=== PATIENT | male | born 1985 | race Caucasian/White ===

== ENCOUNTER 2017-06-05 17:12 | Emergency (ER) | payer OTHER, SELFPAY ==
[2017-06-05 17:13] VITALS: BP 135/85; PULSE 74; RESP 16; TEMP 36.4; O2SAT 100; BMI 25.7
--- NOTE | 2017-06-05 17:33 | ED.VISSUMM ---
- ER Visit Summary Date of Service: 06/05/17 Chief Complaint: Diarrhea for 10 days and now abdominal pain History of Present Illness: The patient is a 32 M for surgical history. States the last 10 days he has had multiple episodes of diarrhea. He is also had intermittent fever. Today started having abdominal pain cramping. Denies dysuria. Denies being on any recent antibiotics. He has not recently been hospitalized. He is never anything like this before. No one else at home with similar symptoms. Physical Examination: Male. Vital signs are stable and afebrile. Does not look septic toxic no acute distress. Pulse ox 9% room air no signs of hypoxia. H EENT exam unremarkable moist mucous membranes. Neck nontender no lymphadenopathy. Lungs clear to auscultation bilaterally. Heart regular rate and rhythm no murmur. Abdomen is soft and nontender. Normal bowel sounds. No peritoneal signs. Both right upper right lower quadrants are unremarkable. No hernias or masses. He is moving all 4 extremities. Neurovascular intact. Back exam normal. Skin exam normal. Neurologic exam is normal. Test Results: CBC, liver and lipase were all normal. BMP normal except for potassium of 3.3 consistent with his diarrhea. Emergency Department Course and Treatment: Patient with diarrhea and abdominal pain. His abdominal exam is benign. He will be hydrated with IV fluids. Given IV Zofran for nausea. Will check some screening labs. Treatment Plan: Repeat exam at 1900 patient is doing well. He feels much better with the IV fluids. He is comfortable being discharged home. He has not had any bowel movements in the ER so we could not send a stool sample. He knows to follow-up if he continues to have diarrhea because he will need to have a stool sample done at that time.. Fluids and rest at home. Imodium for diarrhea. Disposition: Discharge Impression: Diarrhea secondary to suspected viral syndrome. Mild hypokalemia This note was generated with [employer] dictation software. It may contain incorrect words, spelling, and punctuation that were not noted in review of the chart prior to signing ED Disposition - Plan for ED Patient: Chief Complaint: Abd Pain Referrals: Care Physician,No Primary [Primary Care Provider] -
[2017-06-05] MEDS: 0.9% Normal Saline 1,000 ML 1000 ML IV (17:35)
[2017-06-05] MEDS: Ondansetron 4 MG/2 ML Vial IV (17:35)
[2017-06-05 17:47] LABS: Absolute Lymphocyte Count 2.38 X10^3/ul (0.83-4.51); Absolute Neutrophil Count 2.4 X10^3/uL (2.0-7.7); Basophil# 0.02 X10^3/uL; Basophil% 0.4 % (0-1); Eosinophil# 0.12 X10^3/uL; Eosinophils% 2.1 % (0-5); Hematocrit 39.5 % (40-54); Hemoglobin 13.9 g/dl (13.0-16.5); Lymphocyte # 2.38 X10^3/ul (4.0); Mean Corp Hgb Conc 35.2 g/gl (32-36); Mean Corpuscular Hgb 30.8 pg (27.0-32.0); Mean Corpuscular Volume 87.4 fL (80-94); Mean Platelet Vol. 9.8 fl (6.2-12.0); Monocyte# 0.78 X10^3/uL; Monocyte% 13.8 % (0-10); Neutrophil # 2.36 X10^3/uL (2.7-7.7); Neutrophil % 41.5 % (47-70); Platelet Count 203 K/mm3 (150-450); RBC Distribution Width CV 12.5 % (11.6-14.6); RBC Distribution Width SD 40.3 fl (35.1-43.9); Red Blood Count 4.52 M/mm3 (4.6-6.2); White Blood Count 5.7 K/mm3 (4.4-11.0)
[2017-06-05 17:48] LABS: POSITIVE COUNT NO; POSITIVE DIFFERENTIAL NO; POSITIVE MORPHOLOGY NO
[2017-06-05 18:17] LABS: AST(SGOT) 33 U/L (15-37); Alanine Aminotransfer ALT/SGPT 47 U/L (12-78); Alkaline Phosphatase 63 U/L (45-117); Anion Gap 8 (5-15); BUN 9 mg/dL (7-18); BUN/Creat Ratio 11.6 RATIO (10-20); Bilirubin, Direct 0.18 mg/dL (0.00-0.30); Calcium,Total 8.6 mg/dL (8.5-10.1); Chloride 106 mmol/L (98-107); Creatinine, Serum 0.78 mg/dL (0.70-1.30); EST Glomerular Filtration Rate 122 mL/min (>60); Est Glom Filt Rate - Afr Amer 147 mL/min (>60); Estimated Creatinine Clearance 124.76 ml/min; Globulin 3.4 g/dL (2.2-4.2); Glucose 88 mg/dL (70-110); Lipase 73 U/L (73-393); Potassium 3.3 mmol/L (3.5-5.1); Protein, Total 7.4 g/dL (6.4-8.2); Sodium Level 142 mmol/L (136-145)
--- NOTE | 2017-06-05 19:04 | ED.DEP ---
ED Disposition - Plan for ED Patient: Disposition: Home or Assisted Living Chief Complaint: Abd Pain Instructions: ED Diarrhea Viral Referrals: Miguel Ovalle MD [STAFF PHYSICIAN] - 3-5 Days if not improving Additional Instructions: Plenty of fluids and rest. Vitamins and green leafy vegetables and fruits to replace your potassium. Imodium as needed for diarrhea. Follow-up if you are not improving and the diarrhea is not resolving then you will need a stool sample tested.
[2017-06-05 19:23] VITALS: PULSE 85; RESP 14; O2SAT 99
== END 2017-06-05 19:24 | disposition home or self-care (01) ==
PROVIDERS: Emergency Provider Emergency Medicine
DX: R19.7 Diarrhea, unspecified (principal); B34.9 Viral infection, unspecified; E87.6 Hypokalemia; R10.9 Unspecified abdominal pain; Z72.0 Tobacco use
CPT/HCPCS: 80048; 80076; 83690; 85025; 96374; 99282; J7030; J2405

== ENCOUNTER 2020-11-22 15:35 | Emergency (ER) | payer OTHER, SELFPAY ==
[2020-11-22 15:35] VITALS: BP 152/78; PULSE 78; RESP 18; TEMP 36.1; O2SAT 98; BMI 27.8
--- NOTE | 2020-11-22 17:14 | EDS_ITS ---
HPI History of Present Illness Chief Complaint: Dental Narrative Narrative: Patient presenting secondary to a dental injury. Patient was at work, he states that a chain flipped off of a reyes and hit him in the mouth. He did not get knocked out, it did cause him to fracture some teeth. Patient's not on any sort of anticoagulants. Denies any visual changes numbness weakness nausea or vomiting or confusion. Patient reports a moderate amount of pain in his teeth. PFSH PFSH Home Medications hydrocodone-acetaminophen 1 tab PO Q6H PRN PRN 3 Days #12 tablet 11/22/20 [Rx Last Taken Unknown] Allergy/AdvReac Type Severity Reaction Status Date / Time No Known Allergies Allergy Verified 11/22/20 15:39 Social History Smoking Status: Former smoker ROS ROS ED Constitutional Constitutional ED: Denies chills or fever(s) ENT ENT ED: Reports other Details: Dental fractures Cardiovascular Cardiovascular: Denies chest pain Respiratory/Chest Respiratory/Chest: Denies cough or dyspnea Gastrointestinal Gastrointestinal: Denies abdominal pain, diarrhea, nausea or vomiting Genitourinary Genitourinary ED: Denies dysuria or hematuria Musculoskeletal Musculoskeletal: Denies back pain Integumentary Denies rash Neurologic Neurologic: Denies paresthesias or weakness Psychiatric Psychiatric: Denies depression Endocrine Endocrinology: Denies fatigue Allergic/Immunologic Allergic/Immunologic ED: Denies urticaria EXAM Physical Exam Const Vital Signs: 11/22/20 15:35 Temperature 97 F L Temperature Source Temporal Pulse Rate 78 Respiratory Rate 18 Blood Pressure 152/78 H Blood Pressure Mean 102 Pulse Ox 98 Oxygen Delivery Method Room Air Positive well nourished and well developed General Appearance ED: well developed and NAD HEENT Reports moist mucous membranes HEENT Narrative: Examination of the patient's mouth shows no evidence of malocclusion, no evidence of midface instability. There are Ruiz 2 dental fractures of the patient's central upper incisors. Patient has a slight scratch on his right lateral incisor. trauma; Negative for tenderness Eyes EOMs intact bilaterally Neck no lymphadenopathy, supple and no JVD Chest Wall inspection of chest normal Resp normal respiratory effort and clear to auscultation bilaterally Cardio regular rate, regular rhythm, no murmurs and peripheral pulses 2+ throughout GI normal to inspection, nondistended, normoactive bowel sounds, non-tender and no masses Palpation: soft Back/Spine normal to inspection Extremity normal to inspection General Extremety ED: Negative for tenderness Neuro oriented x3 and no sensory deficits noted Sensorium / Orientation: alert Motor Exam: strength 5/5 throughout Psych mental status grossly normal Skin no rashes or lesions noted MDM MDM MDM Narrative Medical decision making narrative: Patient presented with dental fractures. I do not feel that imaging is indicated. Secondary survey showed only injuries to the patient's mouth. I placed temporary [place] filling over the patient's Ruiz 2 dental fractures on his incisors. Patient was given a [place] in the emergency department. Patient already has a dentist with which she is supposed to follow- up. Patient will be sent home with a course of [place] for treatment of pain. Patient was discharged in improved condition. Discharge Plan Triage Chief Complaint: Dental ED Provider: Simone Mejia Dx/Rx/DC Orders Clinical Impression: Fracture of tooth Instructions: ED Dental Trauma Prescriptions: New hydrocodone-acetaminophen 5-325 mg tablet 1 tab PO Q6H PRN PRN (Reason: Pain) 3 Days Qty: 12 RF: 0 Primary Care Provider: Care Physician,No Primary Referrals: Care Physician,No Primary [Primary Care Provider] - Activity Restrictions/Additional Instructions: You will need to follow-up with a dentist for definitive management of your tooth fractures. Disposition Disposition: Home, self care
[2020-11-22] MEDS: HYDROcodone Bitartrate/Apap 5/325 Tablet PO (17:35)
== END 2020-11-22 17:38 | disposition home or self-care (01) ==
PROVIDERS: Emergency Provider Emergency Medicine
DX: S02.5XXA Fracture of tooth (traumatic), initial encounter for closed fracture (principal); W22.8XXA Striking against or struck by other objects, initial encounter; Y93.9 Activity, unspecified; Y92.9 Unspecified place or not applicable; Y99.0 Civilian activity done for income or pay; Z87.891 Personal history of nicotine dependence
CPT/HCPCS: 99283

== ENCOUNTER 2021-04-18 21:26 | Emergency (ER) | payer OTHER, SELFPAY ==
[2021-04-18 21:26] VITALS: BP 160/90; PULSE 90; RESP 16; TEMP 36.4; O2SAT 98; BMI 28.1
[2021-04-18 21:29] VITALS: BP 160/90; PULSE 90; RESP 16; TEMP 36.4; O2SAT 98
--- NOTE | 2021-04-18 23:03 | EDS_ITS ---
HPI History of Present Illness Chief Complaint: Rash Informant: patient Narrative Narrative: Patient is a 36-year-old male presenting for evaluation of rash and itching. Patient states he went hunting on Sunday. He noticed that day his skin felt itchy all over like he had dry skin. He took Benadryl which relieved the symptoms. The following day he noticed a tick on his left arm. He pulled it off. He does not think it was on for longer than 24 hours. He notes his left hand was a little swollen today when he woke up his hands, feet and 1 side of his face are all swollen. He has had blotchy, itching rash he describes as hives. Has been taking Benadryl for relief of his symptoms. His boss was concerned that he could have Lyme disease so he recommend he come to the emergency room to be evaluated further. Patient does note that last week he was sick and took 3 days worth of clarithromycin that he had at his house. His last dose was on Sunday. He is never reacted to this before. He denies any other complaints at this time. [place] any difficulty swallowing or breathing. Denies any new soaps, medications or foods. PFSH PFSH Home Medications hydrocodone-acetaminophen 1 tab PO Q6H PRN PRN 3 Days #12 tablet 11/22/20 [Rx Last Taken Unknown] prednisone 40 mg PO DAILY #8 tab 04/18/21 [Rx Last Taken Unknown] Allergy/AdvReac Type Severity Reaction Status Date / Time No Known Allergies Allergy Verified 04/18/21 21:29 Social History Smoking Status: Former smoker ROS ROS ED Constitutional Constitutional ED: Denies chills or fever(s) Eyes Eyes: Denies change in vision ENT ENT ED: Denies ear pain or sore throat Cardiovascular Cardiovascular: Denies chest pain or palpitations Respiratory/Chest Respiratory/Chest: Denies cough or dyspnea Gastrointestinal Gastrointestinal: Denies abdominal pain, nausea or vomiting Musculoskeletal Musculoskeletal: Reports other Details: intermittent hand swelling ; Denies arthralgias or myalgias Integumentary Reports rash; Denies abscess or Abrasions Neurologic Neurologic: Denies headache(s), paresthesias or weakness Psychiatric Psychiatric: Denies depression EXAM Physical Exam Const Vital Signs: 04/18/21 21:26 04/18/21 21:29 Temperature 97.6 F L 97.6 F L Temperature Source Temporal Temporal Pulse Rate 90 90 Respiratory Rate 16 16 Blood Pressure 160/90 H 160/90 H Blood Pressure Mean 113 113 Pulse Ox 98 98 Oxygen Delivery Method Room Air Room Air Positive well nourished and well developed General Appearance ED: well developed HEENT Reports moist mucous membranes HEENT Narrative: Normal oropharynx. No uvular edema. No swelling of the oropharynx appreciated. Negative for trauma Eyes PERRL and EOMs intact bilaterally Neck no lymphadenopathy and supple Neck Narrative: Normal range of motion. No stridor. Chest Wall inspection of chest normal Resp normal respiratory effort and clear to auscultation bilaterally Auscultation: Negative for wheezes Cardio regular rate, regular rhythm and no murmurs GI normal to inspection, nondistended, normoactive bowel sounds Back/Spine no CVA tenderness Extremity normal to inspection General Extremety ED: Negative for edema or tenderness General Extremity: Negative for edema Neuro oriented x3 and CN's II-XII intact bilaterally Sensorium / Orientation: alert Psych mental status grossly normal Skin no rashes or lesions noted Skin Narrative: No urticaria appreciated currently. Patient does have some excoriations on his back from where he was itching. Small scab over left upper arm where he states he removed the tick. MDM MDM MDM Narrative Medical decision making narrative: Patient is evaluated for itching and rash for past 2 days. It is intermittent. Currently he does not have any of the symptoms. It sound like he is having hives. Question if it could be from his recent intake of clarithromycin. He is instructed to stop taking it. I do not think he needs antibiotics. I do not think this is Lyme disease or [place] spotted fever. Concerning the tick was attached for less than 24 hours and we are not endemic in this area I do not think he requires prophylactic antibiotics. Patient will be started on steroids for his symptoms. He is given first dose in the emergency room. He does not have any findings consistent with anaphylaxis. Patient is counseled on signs and symptoms requiring return to the emergency room. Patient verbalizes agreement and understand this plan. Patient discharged home in stable and improved condition. Discharge Plan Triage Chief Complaint: Rash ED Provider: Catherine Salcedo Dx/Rx/DC Orders Clinical Impression: Urticaria Instructions: ED Hives (Adult) Prescriptions: New prednisone 20 mg tablet 40 mg PO DAILY Qty: 8 RF: 0 No Action hydrocodone-acetaminophen 5-325 mg tablet 1 tab PO Q6H PRN PRN (Reason: Pain) 3 Days Qty: 12 RF: 0 Primary Care Provider: Care Physician,No Primary Referrals: Adrián Griffin MD [STAFF PHYSICIAN] - Care Physician,No Primary [Primary Care Provider] - Activity Restrictions/Additional Instructions: Continue taking Benadryl as needed for itching and rash. I suspect you are having some type of allergic reaction. It could be from the clarithromycin antibiotic you were taking or could be from something else. Disposition Disposition: Home, Self Care
[2021-04-18] MEDS: predniSONE 20 MG Tablet 60 MG PO (23:07)
== END 2021-04-18 23:12 | disposition home or self-care (01) ==
PROVIDERS: Emergency Provider Emergency Medicine
DX: L50.9 Urticaria, unspecified (principal); Z87.891 Personal history of nicotine dependence
CPT/HCPCS: 99283

== ENCOUNTER 2022-09-05 12:14 | Emergency (ER) | payer OTHER, SELFPAY ==
[2022-09-05 12:14] VITALS: BP 145/87; PULSE 107; RESP 18; TEMP 36.1; O2SAT 100; BMI 26.6
[2022-09-05 13:50] LABS: Absolute Lymphocyte Count 1.85 X10^3/uL (0.83-4.51); Basophil# 0.06 X10^3/uL; Basophil% 0.8 % (0-1); Eosinophil# 0.22 X10^3/uL; Eosinophils% 2.8 % (0-5); Hematocrit 41.9 % (40-54); Hemoglobin 14.1 g/dL (13.0-16.5); Lymphocyte # 1.85 X10^3/ul (0.83-4.51); Lymphocyte % 23.3 % (19-41); Mean Corp Hgb Conc 33.7 g/dL (32-36); Mean Corpuscular Hgb 30.1 pg (27.0-32.0); Mean Corpuscular Volume 89.5 fL (80-94); Mean Platelet Vol. 9.1 fl (6.2-12.0); Monocyte% 10.1 % (0-10); NRBC Flagged by Analyzer 0 % (0-5); Neutrophil # 5.01 X10^3/uL (2.7-7.7); Neutrophil % 62.9 % (47-70); Platelet Count 292 K/mm3 (150-450); RBC Distribution Width CV 12.4 % (11.6-14.6); RBC Distribution Width SD 40.2 fl (35.1-43.9); Red Blood Count 4.68 M/mm3 (4.6-6.2)
[2022-09-05 14:06] LABS: Anion Gap 4 (5-15); BUN 9 mg/dL (7-18); BUN/Creat Ratio 9.9 RATIO (10-20); Calcium,Total 9.6 mg/dL (8.5-10.1); Chloride 106 mmol/L (98-107); Creatinine, Serum 0.91 mg/dL (0.70-1.30); EST Glomerular Filtration Rate 98 mL/min (>60); Est Glom Filt Rate - Afr Amer 119 mL/min (>60); Estimated Creatinine Clearance 101.89 ml/min; Glucose 92 mg/dL (74-106); Potassium 4.2 mmol/L (3.5-5.1); Sodium Level 137 mmol/L (136-145)
--- NOTE | 2022-09-05 14:52 | CT_ITS ---
EXAM: CT ABDOMEN AND PELVIS WITH INTRAVENOUS CONTRAST CLINICAL INDICATION: abd pain -- IV PO Contrast TECHNIQUE: Helically acquired images were obtained of the abdomen and pelvis with intravenous contrast. This CT exam was performed using one or more of the following dose reduction techniques: automated exposure control, adjustment of the mA and/or kV according to patient size, and/or use of iterative reconstruction technique. This report was created using [employer] report generation technology. CONTRAST: Oral and amp; IV Gastrografin and amp; 100mL Isovue-370 COMPARISON: None. FINDINGS: LOWER THORAX: Unremarkable. Lung bases are clear. No cardiomegaly. No significant pericardial effusion. ABDOMEN: LIVER: Unremarkable. Homogeneous. No focal mass. GALLBLADDER AND BILE DUCTS: Unremarkable. No calcified gallstones. No gallbladder distention or wall edema. No intra- or extrahepatic biliary ductal dilation. PANCREAS: Unremarkable. No focal cystic or solid mass. SPLEEN: Unremarkable. Normal size without focal cystic or solid mass. ADRENALS: Unremarkable. No nodules. KIDNEYS AND URETERS: Unremarkable. Normal renal size and position. No hydronephrosis. STOMACH AND BOWEL: There is mild thickening of wall of enhancement of mucosa of the sigmoid colon which may be due to to colitis. There are no obvious diverticula present. There is no evidence of perforation or abscess. No stomach or bowel distention. PELVIS: APPENDIX: No evidence of acute appendicitis. BLADDER: Unremarkable. REPRODUCTIVE: Unremarkable as visualized. No mass. ABDOMEN and PELVIS: INTRAPERITONEAL SPACE: Unremarkable. No ascites or other fluid collection. No free air. BONES/JOINTS: Unremarkable. No suspicious lytic or blastic abnormality. SOFT TISSUES: Unremarkable. No discrete abdominal or pelvic wall hernia. VASCULATURE: Unremarkable. Abdominal aorta is non-dilated. LYMPH NODES: Unremarkable. No enlarged lymph nodes. CT/Abdomen/Pelvis WITH Contrast IMPRESSION: Mild thickening of the wall with enhancement of the mucosa of the sigmoid colon which may represent focal colitis. There is no abscess or perforation identified. There are no diverticula seen. Electronically Signed: Maximiliano Matamoros MD at 17:19 EDT ,
--- NOTE | 2022-09-05 14:53 | EX.ED.DYSGE1 ---
HPI History of Present Illness Chief Complaint: Abd Pain Informant: patient Onset/Context/Timing Onset: Days Context: Gradual Onset Narrative Narrative: Patient presents secondary to increased abdominal pain. He reports increased abdominal pain for the past 2 days and points to the left upper quadrant. He has had problems with recurrent abdominal pain and states he has been shooting blood for the past 3 years. He has seen multiple doctors and had colonoscopies. There was a question that he may have colitis. Patient had previously been on prednisone and mesalamine but states he stopped taking it because it did not work. He most recently finished a course of Flagyl. He states it made no change in his stool or abdominal pain, but did give him leg pain. He is scheduled to see Dr. Gutierres but cannot get in until November. [facility] Medical History Colitis Duodenitis Ulcerative (chronic) proctitis with rectal bleeding Home Medications hydrocodone-acetaminophen 5-325mg 5mg-325mg 1 tab PO Q6H PRN PRN Pain 3 days #12 TABLETS 11/22/20 [Rx Last Taken Unknown] prednisone 20 mg tablet 40 mg PO DAILY #8 tabs 04/18/21 [Rx Last Taken Unknown] mesalamine 1,000 mg rectal suppository 1 g [place] QHS 06/26/22 [History Last Taken Unknown] omeprazole 40 mg capsule,delayed release 40 mg PO DAILY 06/26/22 [History Last Taken Unknown] amoxicillin 875 mg-potassium clavulanate 125 mg tablet 1 tab PO BID #20 tabs 09/05/22 [Rx Last Taken Unknown] dicyclomine 20 mg tablet 20 mg PO BID PRN abdominal cramping #20 tabs 09/05/22 [Rx Last Taken Unknown] Allergy/AdvReac Type Severity Reaction Status Date / Time clindamycin Allergy Hives Verified 09/05/22 12:17 Social History Smoking Status: Former smoker ROS ROS ED Constitutional Constitutional ED: Denies chills or fever(s) Eyes Eyes: Denies change in vision or discharge from eye(s) ENT ENT ED: Denies discharge from eye(s), rhinorrhea or sore throat Cardiovascular Cardiovascular: Denies chest pain or palpitations Respiratory/Chest Respiratory/Chest: Denies cough or dyspnea Gastrointestinal Gastrointestinal: Reports abdominal pain, diarrhea and melena; Denies nausea or vomiting Genitourinary Genitourinary ED: Denies difficulty urinating or dysuria Musculoskeletal Musculoskeletal: Reports extremity pain; Denies back pain Integumentary Denies Abrasions or rash Neurologic Neurologic: Denies headache(s) or weakness Psychiatric Psychiatric: Denies anxiety or depression Allergic/Immunologic Allergic/Immunologic ED: Denies lip swelling or urticaria EXAM Physical Exam Const Vital Signs: 09/05/22 12:14 Temperature 97 F L Temperature Source Temporal Pulse Rate 107 H Respiratory Rate 18 Blood Pressure 145/87 H Blood Pressure Mean 106 Pulse Ox 100 Oxygen Delivery Method Room Air Positive well nourished and well developed General Appearance ED: well developed HEENT Reports normocephalic and head/scalp atraumatic Eyes PERRL and EOMs intact bilaterally Neck supple Chest Wall inspection of chest normal and palpation of chest normal Resp normal respiratory effort and clear to auscultation bilaterally Cardio regular rate and regular rhythm GI GI Narrative: Left upper quadrant tenderness to palpation. No guarding or rebound. Hypoactive but present bowel sounds are noted. Palpation: soft Extremity normal to inspection Extremity Narrative: Tenderness palpation along the Achilles tendon bilaterally. No significant leg edema noted at this time. Neuro oriented x3 and no sensory deficits noted Sensorium / Orientation: alert Motor Exam: strength 5/5 throughout Psych mental status grossly normal Skin no rashes or lesions noted MDM MDM MDM Narrative Medical decision making narrative: Patient given morphine and Zofran along with IV fluids. Lab work obtained. Venous ultrasound of the bilateral lower extremities obtained given his pain. CT scan of the abdomen pelvis ordered. Lab Data Attestation: I reviewed the patient's lab results. Labs: Laboratory Results - last 24 hr 09/05/22 09/05/22 09/05/22 13:45 13:45 13:45 WBC 8.0 RBC 4.68 Hgb 14.1 Hct 41.9 MCV 89.5 MCH 30.1 MCHC 33.7 RDW Std Deviation 40.2 RDW Coeff of June 12.4 Plt Count 292 MPV 9.1 Immature Gran % (Auto) 0.100 Neut % (Auto) 62.9 Lymph % (Auto) 23.3 Scurry % (Auto) 10.1 H Eos % (Auto) 2.8 Baso % (Auto) 0.8 Absolute Neuts (auto) 5.0 Absolute Lymphs (auto) 1.85 Nucleated RBC % 0 Sodium 137 Potassium 4.2 Chloride 106 Carbon Dioxide 27.0 Anion Gap 4 L BUN 9 Creatinine 0.91 Estim Creat Clear Calc 101.89 Est GFR (MDRD) Af Amer 119 Est GFR (MDRD) Non-Af 98 BUN/Creatinine Ratio 9.9 L Glucose 92 Calcium 9.6 Total Bilirubin 0.80 Direct Bilirubin 0.19 AST 16 ALT 28 Alkaline Phosphatase 71 Total Protein 7.4 Albumin 3.5 Globulin 3.9 Lipase 46 L Urine Color Urine Clarity Urine pH Ur Specific [place] Urine Protein Urine Glucose (UA) Urine Ketones Urine Occult Blood Urine Nitrite Urine Bilirubin Urine Urobilinogen Ur Leukocyte Esterase Urine RBC Urine WBC Ur Squamous Epith Cells Urine Bacteria Urine Mucus 09/05/22 15:25 WBC RBC Hgb Hct MCV MCH MCHC RDW Std Deviation RDW Coeff of June Plt Count MPV Immature Gran % (Auto) Neut % (Auto) Lymph % (Auto) Scurry % (Auto) Eos % (Auto) Baso % (Auto) Absolute Neuts (auto) Absolute Lymphs (auto) Nucleated RBC % Sodium Potassium Chloride Carbon Dioxide Anion Gap BUN Creatinine Estim Creat Clear Calc Est GFR (MDRD) Af Amer Est GFR (MDRD) Non-Af BUN/Creatinine Ratio Glucose Calcium Total Bilirubin Direct Bilirubin AST ALT Alkaline Phosphatase Total Protein Albumin Globulin Lipase Urine Color Yellow Urine Clarity Sl. Cloudy Urine pH 7.0 Ur Specific [place] 1.005 Urine Protein Negative Urine Glucose (UA) Normal Urine Ketones 5 H Urine Occult Blood Negative Urine Nitrite Negative Urine Bilirubin Negative Urine Urobilinogen Normal Ur Leukocyte Esterase Negative Urine RBC 0 SEEN Urine WBC 0 SEEN Ur Squamous Epith Cells 0 SEEN Urine Bacteria 0 SEEN Urine Mucus 0 SEEN Radiography Diagnostic Testing: Clinical Impression(s) from Imaging Studies Abdomen/Pelvis CT 09/05/22 14:52 IMPRESSION: Mild thickening of the wall with enhancement of the mucosa of the sigmoid colon which may represent focal colitis. There is no abscess or perforation identified. There are no diverticula seen. Electronically Signed: Maximiliano Matamoros MD at 17:19 EDT , Treatment and Re-Evaluation :: Venous ultrasound of the lower extremities revealed no evidence of DVT. CBC, chemistry studies, LFTs are all unremarkable. Urinalysis reveals no sign of infection or dehydration. CT scan of the abdomen pelvis does show mild thickening with wall enhancement of the sigmoid colon which may represent focal colitis. There is no abscess or perforation. Test results are discussed with patient and family at bedside. He states he is never had CT imaging before but has had multiple colonoscopies and nothing was ever found. Patient was recently on Flagyl. At this time I will treat him with Augmentin as well as Bentyl to help with some spasm and cramping. He is scheduled to see Dr. Gutierres in November. Discharge Plan Triage Chief Complaint: Abd Pain ED Provider: Lucy Gil Dx/Rx/DC Orders Clinical Impression: Colitis Instructions: ED Understanding Colitis Prescriptions: New amoxicillin-pot clavulanate 875-125 mg tablet 1 tab PO BID Qty: 20 0RF dicyclomine 20 mg tablet 20 mg PO BID PRN (Reason: abdominal cramping) Qty: 20 0RF No Action mesalamine 1,000 mg suppository 1 g [place] QHS omeprazole 40 mg capsule,delayed release(DR/EC) 40 mg PO DAILY hydrocodone-acetaminophen 5-325 mg tablet 1 tab PO Q6H PRN PRN (Reason: Pain) 3 Days Qty: 12 0RF prednisone 20 mg tablet 40 mg PO DAILY Qty: 8 0RF Primary Care Provider: Care Physician,No Primary Referrals: Jaylen Gutierres DO [Med Staff - Active Staff] - Keep Teo appointment Care Physician,No Primary [Primary Care Provider] - Disposition Disposition: Home, Self Care
[2022-09-05] MEDS: Morphine 4 MG/ML Syringe IV (15:17)
[2022-09-05] MEDS: Ondansetron 4 MG/2 ML Vial IV (15:18)
[2022-09-05] MEDS: 0.9% Normal Saline 1,000 ML 150 ML IV (15:18)
[2022-09-05 15:28] LABS: AST(SGOT) 16 U/L (15-37); Alanine Aminotransfer ALT/SGPT 28 U/L (16-61); Albumin, Serum 3.5 g/dL (3.2-5.0); Alkaline Phosphatase 71 U/L (45-117); Bilirubin, Direct 0.19 mg/dL (0.00-0.30); Globulin 3.9 g/dL (2.2-4.2); Lipase 46 U/L (73-393); Protein, Total 7.4 g/dL (6.4-8.2)
[2022-09-05 15:36] LABS: Bacteria 0 SEEN /hpf (None Seen); Mucous, Urine 0 SEEN /hpf (<or=2+); Red Blood Cells-Urine 0 SEEN /hpf (0-5); Squamous Epithelial Cells - UA 0 SEEN /hpf (0-5); White Blood Cells 0 SEEN /hpf (0-5)
[2022-09-05 15:48] LABS: Color, Urine Yellow (Yellow); Glucose, Dipstick Normal (Normal); Ketone-Dipstick 5 mg/dl (Negative); Leukocyte Esterase-Dipstick Negative /ul (Negative); Nitrite-Dipstick Negative (Negative); Occult Blood-Urine Negative /ul (Negative); Protein-Dipstick Negative (Negative); Specific Gravity, Urine 1.005 (1.002-1.030); Urine Bilirubin Dipstick Negative (Negative); Urine Clarity Sl. Cloudy (Clear); Urine Urobilinogen Normal (Normal)
[2022-09-05] MEDS: Amox/Clavulanate 875 MG Tablet PO (18:14)
[2022-09-05] MEDS: Dicyclomine 10 MG Capsule 20 MG PO (18:14)
== END 2022-09-05 18:21 | disposition home or self-care (01) ==
PROVIDERS: Emergency Provider Emergency Medicine; Visit Provider Emergency Medicine
DX: K52.9 Noninfective gastroenteritis and colitis, unspecified (principal); M79.606 Pain in leg, unspecified; Z87.891 Personal history of nicotine dependence
CPT/HCPCS: 74177; 80048; 80076; 81001; 83690; 85025; 93970; 96361; 96374; 96375; 99284; J7030; Q9967; J2405

== ENCOUNTER 2022-11-10 11:09 | Outpatient (CLI) | payer OTHER, SELFPAY ==
[2022-11-10 11:45] LABS: Absolute Lymphocyte Count 1.63 X10^3/uL (0.83-4.51); Absolute Neutrophil Count 3.4 X10^3/uL (2.0-7.7); Basophil# 0.07 X10^3/uL; Basophil% 1.2 % (0-1); Eosinophil# 0.28 X10^3/uL; Eosinophils% 4.7 % (0-5); Hematocrit 35.2 % (40-54); Hemoglobin 11.4 g/dL (13.0-16.5); Lymphocyte # 1.63 X10^3/ul (0.83-4.51); Lymphocyte % 27.2 % (19-41); Mean Corp Hgb Conc 32.4 g/dL (32-36); Mean Corpuscular Hgb 27.7 pg (27.0-32.0); Mean Corpuscular Volume 85.6 fL (80-94); Monocyte# 0.66 X10^3/uL; NRBC Flagged by Analyzer 0 % (0-5); Neutrophil # 3.35 X10^3/uL (2.7-7.7); Neutrophil % 55.7 % (47-70); Platelet Count 333 K/mm3 (150-450); RBC Distribution Width CV 12.8 % (11.6-14.6); RBC Distribution Width SD 39.5 fl (35.1-43.9); Red Blood Count 4.11 M/mm3 (4.6-6.2)
[2022-11-10 11:48] LABS: Erythrocyte Sedimentation Rate 50 mm/hr (0-20)
[2022-11-10 12:27] LABS: ALB/GLOB Ratio 0.8 RATIO (0.9-2.4); AST(SGOT) 13 U/L (15-37); Alanine Aminotransfer ALT/SGPT 26 U/L (16-61); Albumin, Serum 3.1 g/dL (3.2-5.0); Alkaline Phosphatase 73 U/L (45-117); Anion Gap 3 (5-15); BUN 10 mg/dL (7-18); BUN/Creat Ratio 12.7 RATIO (10-20); Calcium,Total 9.1 mg/dL (8.5-10.1); Chloride 108 mmol/L (98-107); Creatinine, Serum 0.79 mg/dL (0.70-1.30); EST Glomerular Filtration Rate 116 mL/min (>60); Est Glom Filt Rate - Afr Amer 140 mL/min (>60); Glucose 86 mg/dL (74-106); LDH 166 U/L (87-241); Potassium 4.1 mmol/L (3.5-5.1); Protein, Total 7.1 g/dL (6.4-8.2); Sodium Level 139 mmol/L (136-145)
[2022-11-13 15:07] LABS: Endomysial Antibody IgA Negative (Negative); Immunoglobulin A 151 mg/dL (90-386); t-Transglutaminase IgA <2 U/mL (0-3)
[2022-11-13 17:07] LABS: Anti-Centromere B Ab <0.2 AI (0.0-0.9); Anti-Chromatin <0.2 AI (0.0-0.9); Anti-Jo <0.2 AI (0.0-0.9); Anti-Mitochondrial AB <20.0 Units (0.0-20.0); Anti-Scleroderma-70 AB <0.2 AI (0.0-0.9); Anti-dsDNA Ab 1 IU/mL (0-9); RNP Ab <0.2 AI (0.0-0.9); SJOGREN'S Anti-SS-A test < 0.2 AI (0.0-0.9); SJOGREN'S Anti-SS-B test < 0.2 AI (0.0-0.9); Smith Ab <0.2 AI (0.0-0.9)
[2022-11-16 19:07] LABS: Albumin 3.4 g/dL (2.9-4.4); Alpha-1-Globulins 0.4 g/dL (0.0-0.4); Alpha-2-Globulins 0.9 g/dL (0.4-1.0); Anti-Smooth Muscle ABS 13 Units (0-19); Cytoplasmic Ab (C-ANCA) <1:20 titer (Neg:<1:20); Gamma Globulin 0.8 g/dL (0.4-1.8); HEPATITIS B SURFACE AG Negative (Negative); Hep C Antibodies Non Reactive (Non Reactive); Hepatitis A IgM Antibody Negative (Negative); Hepatitis B Core AB IgM Negative (Negative); Immunoglobulin A 144 mg/dL (90-386); Immunoglobulin E 18 IU/mL (6-495); Immunoglobulin G 818 mg/dL (603-1613); Immunoglobulin M 121 mg/dL (20-172); PROEL- TOTAL PROTEIN 6.3 g/dL (6.0-8.5); QNTFERON TB Mitogen Value > 10.00 IU/mL (.); QNTFERON TB Nil Value 0 IU/mL (.); QNTFERON TB1+ Ag Value 0 IU/mL (.); QNTFERON TB2+ Ag Value 0 IU/mL (.); QNTIFERON TB Positive Criteria Negative (Negative)
== END 2022-11-10 23:59 | disposition home or self-care (01) ==
PROVIDERS: Referring Provider Internal Medicine Gastroenterology; Visit Provider Internal Medicine Gastroenterology
DX: K51.211 Ulcerative (chronic) proctitis with rectal bleeding (principal)
CPT/HCPCS: 36415; 80053; 80074; 82784; 82785; 83516; 83615; 84165; 85025; 85652; 86140; 86225; 86235; 86255; 86256; 86334; 86480

== ENCOUNTER → 2023-06-08 | Outpatient (CLI) | payer OTHER, SELFPAY ==
--- NOTE | 2023-06-08 18:58 | CT_ITS ---
STUDY: CT ABDOMEN AND PELVIS WITH CONTRAST REASON FOR EXAM: Male, 38 years old. Ulcerative Colitis RADIATION DOSAGE (If Supplied By Facility): CTDIvol = ( 13.40 ) mGy, DLP = ( 829.18 ) mGycm TECHNIQUE: Transaxial images were obtained from the dome of the diaphragm to the symphysis pubis with oral contrast. Oral and amp; IV Readi-CAT and amp; 100mL Isovue-300 was administered. Sagittal and coronal images were reconstructed. Individualized dose optimization techniques were used for this CT. COMPARISON: 08/28/2022. FINDINGS: The visualized lung bases are unremarkable. The visualized portions of the heart are within normal limits. Normal liver. Normal gallbladder and extrahepatic biliary system. Normal spleen. Normal pancreas. Normal bilateral adrenal glands. Normal right kidney. Normal left kidney. Normal visualized stomach. Normal small intestine. Normal right colon and transverse colon. Abnormal descending colon and rectosigmoid with prominent wall thickening consistent with nonspecific colitis. Colonoscopy is suggested. The appendix is visualized and appears normal. Normal abdominal aorta. Normal inferior vena cava. Normal retroperitoneum. Normal urinary bladder. Normal abdominal wall. Normal osseous structures. CT/Abdomen/Pelvis WITH Contrast IMPRESSION: Abnormal descending colon and rectosigmoid with prominent wall thickening consistent with nonspecific colitis. Colonoscopy is suggested. Electronically Signed: Bud Young MD at 13:27 EST ,
== END | disposition home or self-care (01) ==
LOC: CT 18:55
PROVIDERS: Referring Provider Internal Medicine Gastroenterology; Visit Provider Internal Medicine Gastroenterology
DX: K51.211 Ulcerative (chronic) proctitis with rectal bleeding (principal)
CPT/HCPCS: 74177; Q9967

== ENCOUNTER 2023-06-11 12:08 | Emergency (ER) | payer OTHER, SELFPAY ==
[2023-06-11 12:09] VITALS: BP 163/99; PULSE 84; RESP 14; TEMP 36.6; O2SAT 100; BMI 28.5
--- NOTE | 2023-06-11 12:40 | EX.ED.DYSGE1 ---
HPI History of Present Illness Chief Complaint: GI Bleed [facility] Medical History (Updated 06/11/23 @ 14:[address] Tonny Michaels DO) Blood disorder Colitis Dietary restriction Duodenitis Former smoker History of GI bleed History of steroid therapy Home Medications budesonide 9 mg tablet,delayed and extended release 9 mg PO QAM 30 days #30 ea 06/05/23 [Rx Last Taken Unknown] ondansetron 4 mg disintegrating tablet 4 mg PO Q8H PRN PRN Nausea #10 tabs 06/11/23 [Rx Last Taken Unknown] Allergy/AdvReac Type Severity Reaction Status Date / Time clindamycin Allergy Hives Verified 06/11/23 12:10 Surgical History History of colonoscopy Social History Smoking Status: Former smoker EXAM Physical Exam Const Vital Signs: 06/11/23 12:09 06/11/23 14:54 Temperature 97.9 F Temperature Source Temporal Pulse Rate 84 81 Respiratory Rate 14 14 Blood Pressure 163/99 H 151/76 H Blood Pressure Mean 120 101 Pulse Ox 100 98 Oxygen Delivery Method Room Air Room Air [facility] MDM Narrative Medical decision making narrative: HISTORY OF PRESENT ILLNESS: 38-year-old male presents with concern for GI bleed. Notes several days of symptoms. Notes left upper quadrant pain for 3 days. Notes bright red blood per rectum. Notes he had recent CT 3 days ago. REVIEW OF SYSTEMS: Pertinent positives: Abdominal pain, blood in stool Pertinent negatives: Chest pain, shortness of breath PHYSICAL EXAM: Nursing triage notes reviewed, Vital signs reviewed Constitutional: please see mdm HENT: MMM Eyes: Pupils equal round and reactive to light, Extraocular muscles intact Neck: No stridor, no JVD, full neck ROM Lungs: Clear to auscultation, No wheezing or rales. No increased work of breathing, no conversational dyspnea, no accessory muscle use, no nasal flaring. No respiratory distress noted Heart: Regular rate and rhythm, No murmurs, No rubs and No gallops, 2+ distal pulses (radial, femoral, posterior tibial) in all extremities Abdomen: Soft, mild left upper quadrant tenderness but no rigidity, rebound or guarding, no obvious peritoneal signs, no palpable pulsatile abdominal masses, no auscultated abdominal bruit : No CVAT Extremities: No edema Neuro: No focal neurological deficits, cranial nerves II through XII intact, 5/5 strength in all extremities. Intact sensation to light touch in all extremities, 2+ reflexes bilateral patella tendons. Normal gait. No ataxia. Skin: No rash or lesions noted MEDICAL DECISION MAKING: Chief Complaint: GI bleeding External records reviewed: CT scan of the abdomen pelvis from 06/08/[address] is [address] Last CT scan that was read was from 09/05/2022 showed focal colitis Factors affecting care: Ulcerative proctitis, ulcerative colitis Consults: none MDM Narrative: He was hemodynamically stable, afebrile, nontoxic-appearing. I considered the following differential diagnosis: UC flare, anemia, GI bleed ALL IMAGES (IF OBTAINED) HAVE BEEN PERSONALLY REVIEWED AND INTERPRETED BY MYSELF. I was able to have our current radiologist read the patient's scan from 06/08/2023. That read was remarkable for evidence of colitis likely secondary to the patient's known history of ulcerative colitis CBC without significant leukocytosis, there is mild anemia however this is close to baseline, there is no thrombocytopenia CMP without evidence of acute kidney injury, significant electrolyte abnormality, anion gap, no evidence hepatobiliary pathology. The synthesis of the patient's history, physical exam, labs images suggest no acute life-limiting etiology. His symptoms are likely secondary to a UC flare. Is currently on oral budesonide I encouraged him to continue to follow-up with his primary care physician as well as a GI doctor for outpatient follow-up. There is no indication for hospitalization or surgical evaluation at this time. The patient and/or family, caregivers express understanding. The patient and/or family, caregivers agrees with the plan. Shared decision making: I will have a discussion with the patient and or visitors regarding risk/benefits of further testing or admission. They will be made aware of of the risk/benefits inherent in this decision they will be given the opportunity to voice understanding. Total critical care time today provided was at least 0 [] minutes. This excludes separately billable procedures. Critical care time (if documented) is secondary to the patient having high probability of clinically significant/life threatening deterioration in the patient's condition which required my urgent intervention. Impression: 1. Lower GI bleed 2. History of ulcerative colitis 3. Anemia Dispo: Discharge home Lab Data Labs: Laboratory Results - last 24 hr 06/11/23 13:04 WBC 9.8 RBC 3.83 L Hgb 11.3 L Hct 33.7 L MCV 88.0 MCH 29.5 MCHC 33.5 RDW Std Deviation 43.3 RDW Coeff of June 13.8 Plt Count 276 MPV 8.7 Immature Gran % (Auto) 0.300 Neut % (Auto) 63.1 Lymph % (Auto) 23.0 [place] % (Auto) 10.5 H Eos % (Auto) 2.4 Baso % (Auto) 0.7 Absolute Neuts (auto) 6.2 Absolute Lymphs (auto) 2.25 Nucleated RBC % 0 Sodium 144 Potassium 4.0 Chloride 111 H Carbon Dioxide 29.0 Anion Gap 4 L BUN 11 Creatinine 1.07 Estim Creat Clear Calc 85.80 Est GFR (MDRD) Af Amer 98 Est GFR (MDRD) Non-Af 81 BUN/Creatinine Ratio 10.3 Glucose 96 Calcium 8.4 L Total Bilirubin 0.40 AST 9 L ALT 28 Alkaline Phosphatase 51 Total Protein 6.3 L Albumin 2.9 L Globulin 3.4 Albumin/Globulin Ratio 0.9 Discharge Plan Triage Chief Complaint: GI Bleed ED Provider: Tonny Michaels Dx/Rx/DC Orders Clinical Impression: Ulcerative (chronic) proctitis with rectal bleeding Instructions: ED Ulcerative Colitis Prescriptions: New ondansetron 4 mg tablet,disintegrating 4 mg PO Q8H PRN PRN (Reason: Nausea) Qty: 10 0RF No Action budesonide 9 mg tablet,delayed and ext.release 9 mg PO QAM 30 Days Qty: 30 3RF Stand Alone Forms: ED Work / School Excuse Primary Care Provider: Care Physician,Roseanne Primary Referrals: Jaylen Gutierres, [Med Staff - Active Staff] - Activity Restrictions/Additional Instructions: Thank you for trusting us with your care today! Please take Tylenol (2 pills, 650 mg), ibuprofen (2 pills, 400 mg) every 6 hours as needed for pain and fever control. Please take Zofran as needed for nausea vomiting control. Please return to the emergency department if your symptoms change or worsen. Please follow with your Geotechnical Engineering Technician for further outpatient evaluation and management. Disposition Disposition: Home, Self Care Discharge Date/Time: 06/11/23 14:57
[2023-06-11] MEDS: 0.9% Normal Saline (1000mL) 1,000 ML 1000 ML IV (13:02)
--- OUTSIDE RECORDS SUMMARY | 2023-06-11 13:04 | XMS RPT_ITS | CCD ---
Author Name Unknown Address [address] [place] [address] Organization [facility] Care Team Providers Care Cobbler Upper Name Role Phone Unavailable Primary Care Provider GASTON James Attending Unavailable GASTON PAUL Primary Care Unavailable GASTON PAUL Attending Unavailable ANDRY CAMARA Admitting Unavailable ANDRY CAMARA Attending Unavailable ANDRY CAMARA Primary Care Unavailable Allergies Allergy Classification Reported Allergen(s) Allergy Type Date of Onset Reaction(s) Facility (3 sources) Clindamycin; Translations: [CLINDAMYCIN] Drug Allergy 07-16-2021 [facility] Work Phone: (3 sources) Bee Venom Protein (Honey Bee); Translations: [BEE VENOM PROTEIN (HONEY BEE)] Drug Allergy 11-15-2020 [facility] Work Phone: Medications Current Medications Medication Drug Class(es) Dates Sig (Normalized) Sig (Original) amoxicillin 875 mg / clavulanate 125 mg oral tablet (2 sources) Penicillin-class Antibacterial Start: 06-12-2022 End: 06-19-2022 take 1 tablet by mouth twice daily amoxicillin-clav ulanic acid (AUGMENTIN) 875-125 mg per tablet Take 1 tablet by mouth twice daily for 7 days. 14 tablet 0 06/12/2022 06/19/2022 Active Completed/Discontinued Medications Medication Drug Class(es) Dates Sig (Normalized) Sig (Original) omeprazole 20 mg delayed release oral capsule (2 sources) Proton Pump Inhibitor Start: 11-15-2020 take 2 capsules by mouth once daily omeprazole (PRILOSEC) 20 mg capsule Take 2 capsules by mouth once daily. 30 capsule 3 11/15/2020 Active Problems Active Problems Problem Classification Problem Date Documented Da te Episodic/Chronic Anxiety disorders (1 source) Anxiety disorder, unspecified; Translations: [Anxiety] Onset: 07-16-2021 Chronic Other ear and sense organ disorders (1 source) Bilateral tinnitus; Translations: [Tinnitus, bilateral] Episodic Otitis media and related conditions (1 source) Acute right otitis media; Translations: [Otitis media, unspecified, right ear] Episodic Past or Other Problems Problem Classification Problem Date Documented Da te Episodic/Chronic Gastrointestinal hemorrhage (3 sources) Rectal hemorrhage; Translations: [Hemorrhage of anus and rectum] Onset: 2 07-16-2021 Episodic Immunizations and screening for infectious disease (2 sources) Encounter for screening for human immunodeficiency virus [HIV]; Translations: [Encounter for screening for other viral diseases] Onset: 2 Episodic Other connective tissue disease (1 source) Other shoulder lesions, right shoulder; Translations: [Rotator cuff tendonitis, right] Onset: 2 Episodic Other screening for suspected conditions (not mental disorders or infectious disease) (1 source) Encounter for screening for lipoid disorders; Translations: [Screening for lipid disorders] Onset: 2 Episodic Results Test Name Value Interpretation Reference Range Facil ity Vital Signs Date Time Vital Sign Value Performing Clinician Brandon [email or web address] 06-12-2022 13:10-0500 Body temperature 97.2 [degF] Rhoda Grion LAUNDRY WASHER.SECOND FLOOR OPERATOR Work Phone: [facility] 06-12-2022 13:10-0500 Body weight 76.57 kg Rhoda Giron LAUNDRY WASHER.SECOND FLOOR OPERATOR Work Phone: [facility] 06-12-2022 13:10-0500 Diastolic blood pressure 74 mm[Hg] Rhoda Mack LAUNDRY WASHER.SECOND FLOOR OPERATOR Work Phone: [facility] 06-12-2022 13:10-0500 Heart rate 70 /min Rhoda Mack LAUNDRY WASHER.SECOND FLOOR OPERATOR Work Phone: [facility] 06-12-2022 13:10-0500 Respiratory rate 21 /min Rhodaprachi Giron LAUNDRY WASHER.SECOND FLOOR OPERATOR Work Phone: [facility] 06-12-2022 13:10-0500 SaO2% (BldA) [Mass fraction] 99 % Rhoda Giron LAUNDRY WASHER.SECOND FLOOR OPERATOR Work Phone: [facility] 06-12-2022 13:10-0500 Systolic blood pressure 124 mm[Hg] Rhoda Giron LAUNDRY WASHER.SECOND FLOOR OPERATOR Work Phone: [facility] Encounters Encounter Date Encounter Type Care Provider Facility Start: 07-18-2022 ambulatory [facility] Start: 06-16-2022 Telephone encounter Sam Verdin MD Work Phone: General Surgery Plan of Treatment Date Care Activity Detail Author Start: 03-17-2027 Urine microalbumin profile DTA P,TDAP,TD (2 - Td or Tdap) [facility] Start: 06-11-2022 DEPRESSION ASSESSMENT DEPRESSION ASS ESSMENT [facility] Start: 02-09-2022 Influenza vaccination INFLUENZA (#1) [facility] Start: 2018 LIPID SCREEN LIPID SCREEN [facility] Start: 2001 HEPATITIS C SCREENING HEPATITIS C SC REENING [facility] Start: 2001 HIV SCREENING HIV SCREENING [facility] Start: 1983 COVID-19 VACCINE (#1) COVID-19 VACCI NE (#1) [facility] Start: 1983 HEPATITIS B (1 of 3 - 3-dose series) HEPATITIS B (1 of 3 - 3-dose series) [facility] Immunizations Immunization Date Immunization Notes Care Provider Fa dbebie 03-17-2017 tetanus toxoid, redu robert diphtheria toxoid, and acellular pertussis vaccine, adsorbed Rhoda Giron LAUNDRY WASHER.SECOND FLOOR OPERATOR Work Phone: [facility] Payers Date Payer Category Payer Unknown MMO MMO [employer] [id number] 2021-Present [phone] [address] [place] [address] PPO [id number] 2021 Unknown [id number] 2020 Private Health Insurance [id number] 1985 Unknown [id number] Social History Date Type Detail Facility Start: 06-12-2022 Tobacco smoking stat us NHIS Ex-smoker [facility] End: 06-11-2019 History of tobacco use Current smoker [facility] End: 06-11-2019 History of tobacco use Cigarette Smoker [facility] Start: 06-12-2022 Cigarettes smoked cu rrent (pack per day) - Reported 0.5 [facility] Start: 06-12-2022 Tobacco use and exposure Forme r smokeless tobacco user [facility] End: 06-11-2019 History of tobacco use Chews Tobacco [facility] Start: 06-12-2022 Alcohol intake Current drinke r of alcohol (finding) [facility] Start: 07-16-2021 History SDOH Alcohol Frequency 3 [facility] Start: 07-16-2021 History SDOH Alcohol Std Drinks 5 [facility] Start: 07-18-2021 History SDOH Alcohol Binge 4 [facility] Start: 07-16-2021 History SDOH Physica l Activity DPW 6 [facility] Start: 07-16-2021 History SDOH Physica l Activity MPS 15 [facility] Start: 07-16-2021 Education 12 [facility] Start: 06-12-2022 Tobacco Comment Vaping off and on. [facility] Start: 1985 Sex Assigned At Not on file [facility] Note 06-16-2022 Telephone Encounter - Verena Eduardo LPN - 06/16/2022 3:18 PM ESTTelephone Encounter - Chanelle Jefferson RN - 06/16/2022 11:20 AM EST Note Date & Type Note Facility 06-16-2022 Miscellaneous Notes Formattin g of this note might be different from the original. CLAY and EGD/colonoscopy report faxed. Verena Eduardo LPN Pt's significant other calling and asked to send any notes to their new GI specialist Dr. Potter. CLAY with Lisset Nguyen and EGD/Colonoscopy report sent to [phone]. documented in this encounter [facility] Progress note 06-12-2022 Note Date & Type Note Facility 06-12-2022 Note HNO ID: [id number] Author: Rhoda Giron APRN.JACKSON Service: ? Author Type: Nurse Practitioner Type: Progress Notes Filed: 06/12/2022 1:36 PM Note Text: This note was created using Aidhenscornerriter. Subjective Marycarmen Rabago is a 37 year old male. 37 year old male with no significant PMH presents for complaints of ear pain and ringing. Acute onset of symptoms was 1 1 /2 weeks ago Right ear +ringing in ears + pain right ear. 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 He failed prior hearing exams. Denies accompanying URI sx. Eliot drainage. Denies fever or chills. Denies using homeopathic or OTC medications XEROX MACHINE OPERATOR. He does state that he utilized his significant others left over ATB. The history is provided by the patient. No vamp strap ironer was used. Ear Pain This is a new problem. The current episode started 1 to 4 weeks ago. The problem occurs constantly. The problem has been gradually worsening. Pertinent negatives include no abdominal pain, anorexia, arthralgias, change in bowel habit, chest pain, chills, congestion, coughing, diaphoresis, fatigue, fever, headaches, joint swelling, myalgias, nausea, neck pain, numbness, rash, sore throat, swollen glands, urinary symptoms, vertigo, visual change, vomiting or weakness. Nothing aggravates the symptoms. He has tried nothing for the symptoms. The treatment provided no relief. PAST MEDICAL HISTORY Diagnosis Date Rectal bleeding 07/16/2021 PAST SURGICAL HISTORY Procedure Laterality Date COLONOSCOPY FLX DX W/COLLJ SPEC WHEN PFRMD 12/21/2020 ESOPHAGOGASTRODUODENOSCOPY TRANSORAL DIAGNOSTIC 12/21/2020 ALLERGIES Bee Venom Protein (Honey Bee) and Clindamycin MEDICATIONS amoxicillin-clavulanic acid (AUGMENTIN) 875-125 mg per tablet Take 1 tablet by mouth twice daily for 7 days. sertraline (ZOLOFT) 50 mg tablet Take 1 tablet by mouth once daily. (Patient not taking: Reported on 06/12/2022) omeprazole (PRILOSEC) 20 mg capsule Take 2 capsules by mouth once daily. (Patient taking differently: Take 40 mg by mouth once daily. PRN ) FAMILY HISTORY Problem Relation Age of Onset Hypertension Mother Alcohol/Drug Father limited contact No Known Problems Sister No Known Problems Sister No Known Problems Sister No Known Problems Maternal Grandmother Diabetes Maternal Grandfather Social History Tobacco Use Smoking status: Former Packs/day: 0.50 Years: 20.00 Pack years: 10.00 Types: Cigarettes Quit date: 06/11/2019 Years since quittin.0 Smokeless tobacco: Former Types: Chew Quit date: 06/11/2019 Tobacco comments: Vaping off and on. Vaping Use Vaping Use: current everyday user Substances: Nicotine, Flavoring Devices: Pre-filled or refillable cartridge Substance Use Topics Alcohol use: Yes Alcohol/week: 10.0 standard drinks Types: 10 Cans of Beer (12oz) per week Drug use: Not Currently Types: Marijuana Comment: not since 17 years old Review of Systems Constitutional: Negative for chills, diaphoresis, fatigue and fever. HENT: Positive for ear pain and hearing loss. Negative for congestion, rhinorrhea, sinus pressure, sinus pain and sore throat. Eyes: Negative for pain, discharge and itching. Respiratory: Negative for apnea, cough, choking and chest tightness. Cardiovascular: Negative for chest pain, palpitations and leg swelling. Gastrointestinal: Negative for abdominal pain, anorexia, change in bowel habit, nausea and vomiting. Musculoskeletal: Negative for arthralgias, joint swelling, myalgias and neck pain. Skin: Negative for color change, pallor and rash. Allergic/Immunologic: Negative for environmental allergies, food allergies and immunocompromised state. Neurological: Negative for vertigo, weakness, numbness and headaches. Hematological: Negative for adenopathy. Does not bruise/bleed easily. Psychiatric/Behavioral: Negative for agitation and behavioral problems. Objective BP 124/74 Pulse 70 Temp 36.2 ?C (97.2 ?F) Resp 21 Wt 76.6 kg (168 lb 12.8 oz) SpO2 99% BMI 25.88 kg/m? Physical Exam Vitals and nursing note reviewed. Constitutional: General: He is not in acute distress. Appearance: Normal appearance. He is not ill-appearing, toxic-appearing or diaphoretic. HENT: Head: Normocephalic and atraumatic. Right Ear: External ear normal. Left Ear: External ear normal. Ears: Comments: Right TM erythematous and without bony landmarks easily visualized. Left with moderate effusion. No mastoid tenderness. Nose: Nose normal. No congestion or rhinorrhea. Mouth/Throat: Mouth: Mucous membranes are moist. Pharynx: Oropharynx is clear. No oropharyngeal exudate or posterior oropharyngeal erythema. Eyes: General: Right eye: No discharge. Left eye: No discharge. Extraocular Movements: Extraocular movements intact. Conjunctiva/sclera: Conjunctivae normal. Pupils: Pupils are equal, round, (more content not included)... [facility] History of Present illness Narrative 06-12-2022 Rhoda Giron APRN.SECOND FLOOR OPERATOR - 06/12/2022 1:17 PM EST Note Date & Type Note Facility 06-12-2022 History of Presen t illness Narrative This note was created using [employer]!. Subjective Marycarmen Rabago is a 37 year old male. 37 year old male with no significant PMH presents for complaints of ear pain and ringing. Acute onset of symptoms was 1 1 /2 weeks ago Right ear +ringing in ears + pain right ear. 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 He failed prior hearing exams. Denies accompanying URI sx. Eliot drainage. Denies fever or chills. Denies using homeopathic or OTC medications XEROX MACHINE OPERATOR. He does state that he utilized his significant others left over ATB. The history is provided by the patient. No vamp strap ironer was used. Ear Pain This is a new problem. The current episode started 1 to 4 weeks ago. The problem occurs constantly. The problem has been gradually worsening. Pertinent negatives include no abdominal pain, anorexia, arthralgias, change in bowel habit, chest pain, chills, congestion, coughing, diaphoresis, fatigue, fever, headaches, joint swelling, myalgias, nausea, neck pain, numbness, rash, sore throat, swollen glands, urinary symptoms, vertigo, visual change, vomiting or weakness. Nothing aggravates the symptoms. He has tried nothing for the symptoms. The treatment provided no relief. PAST MEDICAL HISTORY Diagnosis Date Rectal bleeding 07/16/2021 PAST SURGICAL HISTORY Procedure Laterality Date COLONOSCOPY FLX DX W/COLLJ SPEC WHEN PFRMD 12/21/2020 ESOPHAGOGASTRODUODENOSCOPY TRANSORAL DIAGNOSTIC 12/21/2020 ALLERGIES Bee Venom Protein (Honey Bee) and Clindamycin MEDICATIONS amoxicillin-clavulanic acid (AUGMENTIN) 875-125 mg per tablet Take 1 tablet by mouth twice daily for 7 days. sertraline (ZOLOFT) 50 mg tablet Take 1 tablet by mouth once daily. (Patient not taking: Reported on 06/12/2022) omeprazole (PRILOSEC) 20 mg capsule Take 2 capsules by mouth once daily. (Patient taking differently: Take 40 mg by mouth once daily. PRN ) FAMILY HISTORY Problem Relation Age of Onset Hypertension Mother Alcohol/Drug Father limited contact No Known Problems Sister No Known Problems Sister No Known Problems Sister No Known Problems Maternal Grandmother Diabetes Maternal Grandfather Social History Tobacco Use Smoking status: Former Packs/day: 0.50 Years: 20.00 Pack years: 10.00 Types: Cigarettes Quit date: 06/11/2019 Years since quittin.0 Smokeless tobacco: Former Types: Chew Quit date: 06/11/2019 Tobacco comments: Vaping off and on. Vaping Use Vaping Use: current everyday user Substances: Nicotine, Flavoring Devices: Pre-filled or refillable cartridge Substance Use Topics Alcohol use: Yes Alcohol/week: 10.0 standard drinks Types: 10 Cans of Beer (12oz) per week Drug use: Not Currently Types: Marijuana Comment: not since 17 years old Review of Systems Constitutional: Negative for chills, diaphoresis, fatigue and fever. HENT: Positive for ear pain and hearing loss. Negative for congestion, rhinorrhea, sinus pressure, sinus pain and sore throat. Eyes: Negative for pain, discharge and itching. Respiratory: Negative for apnea, cough, choking and chest tightness. Cardiovascular: Negative for chest pain, palpitations and leg swelling. Gastrointestinal: Negative for abdominal pain, anorexia, change in bowel habit, nausea and vomiting. Musculoskeletal: Negative for arthralgias, joint swelling, myalgias and neck pain. Skin: Negative for color change, pallor and rash. Allergic/Immunologic: Negative for environmental allergies, food allergies and immunocompromised state. Neurological: Negative for vertigo, weakness, numbness and headaches. Hematological: Negative for adenopathy. Does not bruise/bleed easily. Psychiatric/Behavioral: Negative for agitation and behavioral problems. Objective BP 124/74 Pulse 70 Temp 36.2 C (97.2 F) Resp 21 Wt 76.6 kg (168 lb 12.8 oz) SpO2 99% BMI 25.88 kg/m Physical Exam Vitals and nursing note reviewed. Constitutional: General: He is not in acute distress. Appearance: Normal appearance. He is not ill-appearing, toxic-appearing or diaphoretic. HENT: Head: Normocephalic and atraumatic. Right Ear: External ear normal. Left Ear: External ear normal. Ears: Comments: Right TM erythematous and without bony landmarks easily visualized. Left with moderate effusion. No mastoid tenderness. Nose: Nose normal. No congestion or rhinorrhea. Mouth/Throat: Mouth: Mucous membranes are moist. Pharynx: Oropharynx is clear. No oropharyngeal exudate or posterior oropharyngeal erythema. Eyes: General: Right eye: No discharge. Left eye: No discharge. Extraocular Movements: Extraocular movements intact. Conjunctiva/sclera: Conjunctivae normal. Pupils: Pupils are equal, round, and reactive to light. Cardiovascular: Rate and Rhythm: Normal rate and regular rhythm. Pulses: Normal pulses. Heart sounds: Normal heart sounds. No murmur heard. No friction rub. No gallop. Pulmonary: Effort: Pulmonary effort is normal. No respiratory distress. Breath sounds: Normal breath sounds. No stridor. No wheezing, rhonchi or rales. Chest: Chest wall: No tenderness. Abdominal: General: Abdomen is flat. There is no distension. Palpations: Abdomen is soft. There is no mass. Tenderness: There is no abdominal tenderness. There is no guarding or rebound. Hernia: No hernia is present. Musculoskeletal: General: No swelling, tenderness, deformity or signs of injury. Normal range of motion. Cervical back: Normal range of motion and neck supple. No rigidity or tenderness. Right lower leg: No edema. Left lower leg: No edema. Lymphadenopathy: Cervical: No cervical adenopathy. Skin: General: Skin is warm and dry. Capillary Refill: Capillary refill takes less than 2 seconds. Coloration: Skin is not jaundiced or pale. Findings: No bruising, lesion or rash. Neurological: General: No focal deficit present. Mental Status: He is alert and oriented to person, place, and time. Cranial Nerves: No cranial nerve deficit. Sensory: No sensory deficit. Motor: No weakness. Coordination: Coordination normal. Gait: Gait normal. Deep Tendon Reflexes: Reflexes normal. Psychiatric: Mood and Affect: Mood normal. Behavior: Behavior normal. Thought Content: Thought content normal. Assessment and Plan ASSESSMENT/PLAN: 1. Acute otitis media, right - ICD9: 382.9, ICD10: H66.91 (primary diagnosis) - Will begin treatment with as per antibiotic as written, see orders - The patient should also be given nasal saline gtts and suction prn for the first 5-7 days of treatment. 2. Tinnitus of both ears - ICD9: 388.30, ICD10: H93.13 Always ringing per patient Patient has history of ear loss and loud exposure. Referred to ENT. Rhoda Giron APRN.SECOND FLOOR OPERATOR documented in this encounter [facility] Progress note 07-16-2021 Note Date & Type Note Facility 07-16-2021 Note HNO ID: [id number] Author: Gaston Paul MD Service: ? Author Type: Physician Type: Progress Notes Filed: 07/17/2021 9:58 PM Note Text: This note was created using Aidhenscornerriter. Subjective Patient presents with: Establish Care Anxiety . Marycarmen Rabago was here to establish care and get treatment for anxiety. He has been anxious all his life but never formally diagnosed or treated. He managed anxiety himself by his hobbies, especially hunting. 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 He also had right shoulder pain for a few weeks related to pulling while cocking his hunting crossbow. Pain was aggravated by certain movements, and he was taking over the counter medication with temporary relief. He had rectal bleeding scant in amount but chronic for the past year. Work up was done but without resolution of symptoms. The history is provided by the patient. Review of Systems Constitutional: Negative. HENT: Negative. Respiratory: Negative. Cardiovascular: Negative. Gastrointestinal: Positive for blood in stool. Negative for abdominal pain, constipation, diarrhea and rectal pain. Genitourinary: Negative. Musculoskeletal: Negative for back pain and joint swelling. Psychiatric/Behavioral: Positive for sleep disturbance. Negative for decreased concentration, self-injury and suicidal ideas. The patient is nervous/anxious. PAST MEDICAL HISTORY Diagnosis Date - Rectal bleeding 07/16/2021 PAST SURGICAL HISTORY Procedure Laterality Date - COLONOSCOPY FLX DX W/COLLJ SPEC WHEN PFRMD 12/21/2020 - ESOPHAGOGASTRODUODENOSCOPY TRANSORAL DIAGNOSTIC 12/21/2020 FAMILY HISTORY Problem Relation Age of Onset - Hypertension Mother - Alcohol/Drug Father limited contact - No Known Problems Sister - No Known Problems Sister - No Known Problems Sister - No Known Problems Maternal Grandmother - Diabetes Maternal Grandfather Social History Tobacco Use - Smoking status: Former Smoker Packs/day: 0.50 Years: 20.00 Pack years: 10.00 Types: Cigarettes Quit date: 06/11/2019 Years since quittin.1 - Smokeless tobacco: Former User Types: Chew Quit date: 06/11/2019 - Tobacco comment: Vaping off and on. Vaping Use - Vaping Use: current everyday user - Substances: Nicotine, Flavoring - Devices: Pre-filled or refillable cartridge Substance Use Topics - Alcohol use: Yes Alcohol/week: 10.0 standard drinks Types: 10 Cans of Beer (12oz) per week - Drug use: Not Currently Types: Marijuana Comment: not since 17 years old Immunization History Administered Date(s) Administered Tdap (Age 7+) 03/17/2017 ALLERGIES Allergen Reactions - Bee Venom Protein (* Swelling - Clindamycin Hives Current Outpatient Medications Medication Sig - omeprazole (PRILOSEC) 20 mg capsule Take 2 capsules by mouth once daily. (Patient taking differently: Take 40 mg by mouth once daily. PRN ) - sertraline (ZOLOFT) 50 mg tablet Take 1 tablet by mouth once daily. - predniSONE (DELTASONE) 10 mg tablet Take 4 tabs daily for 3 days, then 2 tabs daily for 3 days, then 1 tab daily for 3 days with food. No current facility-administered medications for this visit. Objective BP 128/82 Pulse 82 Resp 16 Ht 172 cm (5' 7.72 ) Wt 78.5 kg (173 lb) BMI 26.52 kg/m? Physical Exam Constitutional: General: He is not in acute distress. Appearance: He is not ill-appearing. HENT: Head: Normocephalic. Eyes: Extraocular Movements: Extraocular movements intact. Conjunctiva/sclera: Conjunctivae normal. Cardiovascular: Rate and Rhythm: Normal rate and regular rhythm. Heart sounds: No murmur heard. No gallop. Pulmonary: Effort: Pulmonary effort is normal. Breath sounds: Normal breath sounds. Abdominal: Palpations: Abdomen is soft. Tenderness: There is no abdominal tenderness. Musculoskeletal: Right shoulder: Tenderness present. No swelling, deformity, effusion or crepitus. Decreased range of motion. Normal strength. Left shoulder: Normal. Right lower leg: No edema. Left lower leg: No edema. Lymphadenopathy: Cervical: No cervical adenopathy. Neurological: General: No focal deficit present. Mental Status: He is alert. Psychiatric: Mood and Affect: Mood normal. Behavior: Behavior normal. Thought Content: Thought content normal. PHQ-2=0 CHITRA-7 ANXIETY SCALE 07/16/2021 FEELING NERVOUS,ANXIOUS,OR ON EDGE 3 Nearly every day NOT BEING ABLE TO STOP OR CONTROL WORRYING 3 Nearly every day WORRYING TOO MUCH ABOUT DIFFERENT THINGS 3 Nearly every day TROUBLE RELAXING 3 Nearly every day BEING SO RESTLESS THAT IT'S HARD TO SIT STILL 0 Not at all sure BEING EASILY ANNOYED OR IRRITABLE 2 Over half the days FEELING AFRAID IF SOMETHING AWFUL MIGHT HAPPEN 0 Not at all sure GAD7 SCORE 14 IF YOU CHECKED OFF ANY PROBLEMS Somewhat di (more content not included)... [facility] Evaluation note Note Date & Type Note Facility documented in this encounter [facility] Reason for Referral Specialty Diagnoses / Procedures Referred By David salazar Referred To Contact Ent - Otolaryngology Diagnoses Tinnitus of both ears Procedures CONSULT TO ENT OFFICE/OUTPATIENT [facility] 60-74 MINUTES Rhoda Giron, [email or web address].SECOND FLOOR OPERATOR [address] [place] [address] Referral ID Status Reason Start Date Expiration Date Visits Requested Visits Authorized [id number] Authorized PCP Requested Referral 06/12/2022 06/12/2023 1 1 Summary Purpose Family History No Family History Records FoundNo Family History Records FoundNo Family History Records Found Advance Directives No Advanced Directives Records FoundNo Advanced Directives Records FoundNo Advanced Directives Records Found Additional Source Comments Source Comments (unrecognize d section and content) In the event this informatio n is protected by the Federal Confidentiality of Alcohol and Drug Abuse Patient Records regulations: The Federal rules restrict any use of the information to criminally investigate or prosecute any alcohol or drug abuse patient.[facility] the event this information is protected by the Federal Confidentiality of Alcohol and Drug Abuse Patient Records regulations: The Federal rules restrict any use of the information to criminally investigate or prosecute any alcohol or drug abuse patient.[facility] Reason for Visit (unrecogniz ed section and content) Reason Comments Release Of Medical Records [facility] (unrecognized sect ion and content) No Status Records FoundNo Status Records FoundNo Status Records Found INFORMATION SOURCE (unrecogn ized section and content) DATE CREATED AUTHOR AUTHOR'S ORGANIZ ATION 07/19/[address] [facility] DATE CREATED AUTHOR AUTHOR'S ORGANIZ ATION 07/27/2022 [facility] ([place]) FOR RECORDS PERTAINING TO PATIENTS WHO ARE OR HAVE BEEN ENROLLED IN A CHEMICAL DEPENDENCY/SUBSTANCEABUSE PROGRAM, SOME INFORMATION MAY BE OMITTED. This clinical summary was aggregated from multiple sources. Caution should be exercised in using it in the provision of clinical care. This summary normalizes information from multiple sources, and as a consequence, information in this document may materially change the coding, format and clinical context of patient data. In addition, data may be omitted in some cases. CLINICAL DECISIONS SHOULD BE BASED ON THE PRIMARY CLINICAL RECORDS. [facility] Scre[facility]. provides no warranty or guarantee of the accuracy or completeness of information in this document.
[2023-06-11 13:10] LABS: Absolute Lymphocyte Count 2.25 X10^3/uL (0.83-4.51); Absolute Neutrophil Count 6.2 X10^3/uL (2.0-7.7); Basophil# 0.07 X10^3/uL; Basophil% 0.7 % (0-1); Eosinophil# 0.24 X10^3/uL; Eosinophils% 2.4 % (0-5); Hematocrit 33.7 % (40-54); Hemoglobin 11.3 g/dL (13.0-16.5); Lymphocyte # 2.25 X10^3/ul (0.83-4.51); Mean Corp Hgb Conc 33.5 g/dL (32-36); Mean Corpuscular Hgb 29.5 pg (27.0-32.0); Mean Platelet Vol. 8.7 fl (6.2-12.0); Monocyte# 1.03 X10^3/uL; Monocyte% 10.5 % (0-10); NRBC Flagged by Analyzer 0 % (0-5); Neutrophil # 6.18 X10^3/uL (2.7-7.7); Neutrophil % 63.1 % (47-70); Platelet Count 276 K/mm3 (150-450); RBC Distribution Width CV 13.8 % (11.6-14.6); RBC Distribution Width SD 43.3 fl (35.1-43.9); Red Blood Count 3.83 M/mm3 (4.6-6.2); White Blood Count 9.8 K/mm3 (4.4-11.0)
[2023-06-11] MEDS: Ketorolac 15 MG/ML Vial IV (13:13)
[2023-06-11] MEDS: Ondansetron 4 MG/2 ML Vial IV (13:13)
[2023-06-11] MEDS: Morphine 4 MG/ML Syringe IV (13:14)
[2023-06-11] MEDS: MethylPREDNISolone 125 MG/2 ML Vial IV (13:14)
[2023-06-11 13:25] LABS: ALB/GLOB Ratio 0.9 RATIO (0.9-2.4); AST(SGOT) 9 U/L (15-37); Alanine Aminotransfer ALT/SGPT 28 U/L (16-61); Albumin, Serum 2.9 g/dL (3.2-5.0); Alkaline Phosphatase 51 U/L (45-117); Anion Gap 4 (5-15); BUN 11 mg/dL (7-18); BUN/Creat Ratio 10.3 RATIO (10-20); Calcium,Total 8.4 mg/dL (8.5-10.1); Chloride 111 mmol/L (98-107); Creatinine, Serum 1.07 mg/dL (0.70-1.30); EST Glomerular Filtration Rate 81 mL/min (>60); Est Glom Filt Rate - Afr Amer 98 mL/min (>60); Globulin 3.4 g/dL (2.2-4.2); Glucose 96 mg/dL (74-106); Protein, Total 6.3 g/dL (6.4-8.2); Sodium Level 144 mmol/L (136-145)
[2023-06-11 14:54] VITALS: BP 151/76; PULSE 81; RESP 14; O2SAT 98
== END 2023-06-11 14:57 | disposition home or self-care (01) ==
PROVIDERS: Emergency Provider Emergency Medicine; Visit Provider Emergency Medicine
DX: K51.911 Ulcerative colitis, unspecified with rectal bleeding (principal); D64.9 Anemia, unspecified; R10.12 Left upper quadrant pain; Z79.899 Other long term (current) drug therapy; Z87.891 Personal history of nicotine dependence
CPT/HCPCS: 80053; 85025; 96361; 96374; 96375; 99283; J7030; J2405

== ENCOUNTER 2023-06-14 08:27 | Day surgery (SDC) | payer OTHER, SELFPAY ==
[2023-06-14] VITALS (7 sets, daily range): BP systolic 100–143; BP diastolic 62–86; PULSE 64–95; RESP 16; TEMP 36.2–36.6; O2SAT 95–99; BMI 28.5
[2023-06-14] MEDS: Lactated Ringers 1,000 ML 15 ML IV (08:49)
--- NOTE | 2023-06-14 08:56 | HP.PCM_ITS ---
History and Physical Date of Admission: 06/14/23 MARYCARMEN RABAGO, is a 38 M who presents to the office today for GI [facility] for epigastric abdominal pain, heartburn and hematochezia. Ulcerative proctitis treated with Mesalamine suppository ? EGD and colonoscopy 12.21.20. EGD advanced to jejunum noting duo denitis and gastritis without pathologic changes Colonoscopy advanced to TI without pathologic changes. Colon biopsy at 15cm noted acute inflammation with minimal architectural distortion without gran ulomas and dysplasia. Early IBD cannot be r/o. ? Start Mesalamine 1,000 rectal suppository for rectal proctitis. Start omeprazole 40mg for duodenitis with taper to 20mg in 8 weeks. [facility] workup: ? EGD and colonoscopy 07.21.22 small hernia; bilious staining of gastric body; gastritis. No specimens collected. ? Colonoscopy patchy, rough, edematous, erythematous tissue from rectal vault through 35cm, active colitis with cryptitis and crypt abscesses; tortuous sigmoid colon. *BGI established 6.2.23 for the last four years he has been having blood in his stool, frequent loose BM, abdominal pain/cramping, bloating on a daily. Suppositories were somewhat helpful. ROS Const Constitutional: No anorexia, fatigue, fever(s), weight change or sleep problems Eyes Eyes: No change in vision ENT ENT: No abnormal hearing, difficulty swallowing, mouth lesions, tongue swelling or throat swelling Resp Respiratory: No cough or shortness of breath Cardio Cardiology: No chest pain at rest, chest pain with exertion, shortness of breath or dyspnea on exertion Gastro GI: No difficulty swallowing Genitourinary Male: No difficulty urinating or burning urination Musc Musculoskeletal: No joint pain, joint swelling, muscle weakness or decreased muscle mass Skin Skin: No hair loss in leg, yellowing of the eye, itchy eyes, rash, skin ulcer or skin swelling Neuro Neurology: No abnormal hearing, abnormal movements, confusion, unsteady gait/balance or memory loss Psych Psychiatric: No anxiety, No confusion and No memory loss Endo Endocrine: No fatigue or weight change Aller/Imm Allergy/Immunologic: No itchy eyes, throat swelling or tongue swelling Pa/Lymp Hematologic/Lymphatic: No easy bleeding, easy bruising or enlarged lymph nodes Exam Const General: cooperative and comfortable Nutritional Appearance: average body habitus and well nourished [facility] Head: normal to inspection Ears: hearing grossly normal bilaterally Nose: external nose normal Face and sinus: normal facial exam Mouth: oral mucosae normal Throat: posterior oropharynx normal Eyes General: appearance normal, both eyes and all related structures Neck Neck: normal visual inspection Chest Chest palpation & inspection: normal inspection of the chest and normal palpation of entire chest wall Resp Effort & Inspection: normal respiratory effort Auscultation: Bilateral: Clear to Auscultation Cardio Palpation: normal PMI Rate: regular rate Rhythm: regular rhythm GI Inspection: normal to inspection Auscultation: normal bowel sounds Percussion: normal to percussion Palpation: no hepatosplenomegaly Skin General: no rashes or lesions noted Neuro General: patient alert Extrem General: normal to inspection Psych Affect: normal affect Quality Reporting Tobacco Screening ([facility] 138) Smoking Status: Former smoker Assessment and Plan Assessment and Plan (1) 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 He will need to undergo stool testing along with biochemical testing including [facility] IBD SGI. We will get a CBC, CMP, ESR, CRP, QuantiFERON gold, hepatitis B testing. We will also put him on steroid therapy via oral route and pending. Hopefully once we get his stool studies back and there is no sign of infection will be able to get on some chronic therapy. We are thinking about possibly Stelara therapy if she has a good response to steroid therapy. Orders: Orders Comprehensive Metabolic Profil Today K51.211 - Ulcerative (chronic) proctitis with rectal bleeding CRP Today K51.211 - Ulcerative (chronic) proctitis with rectal bleeding LDH Today K51.211 - Ulcerative (chronic) proctitis with rectal bleeding CBC W/Diff, Automated Today K51.211 - Ulcerative (chronic) proctitis with rectal bleeding Erythrocyte Sed Rate Today K51.211 - Ulcerative (chronic) proctitis with rectal bleeding Anti-Mitochondrial AB Today K51.211 - Ulcerative (chronic) proctitis with rectal bleeding WAGNER Comprehensive Panel Today K51.211 - Ulcerative (chronic) proctitis with rectal bleeding Calprotectin, Stool Today K51.211 - Ulcerative (chronic) proctitis with rectal bleeding OVA+PARA w/Giardia EIA [id number] Today K51.211 - Ulcerative (chronic) proctitis with rectal bleeding CDIFF (PCR) Today K51.211 - Ulcerative (chronic) proctitis with rectal bleeding ENTERIC PATHOGEN PANEL STOOL Today K51.211 - Ulcerative (chronic) proctitis with rectal bleeding, K58.9 - Irritable bowel syndrome without diarrhea Stool Lactoferrin/WBC Today K51.211 - Ulcerative (chronic) proctitis with rectal bleeding ANCA Today K51.211 - Ulcerative (chronic) proctitis with rectal bleeding Anti-Smooth Muscle ABS Today K51.211 - Ulcerative (chronic) proctitis with rectal bleeding Celiac Disease Profile Today K51.211 - Ulcerative (chronic) proctitis with rectal bleeding Immunoglobulins G/A/M/E Today K51.211 - Ulcerative (chronic) proctitis with rectal bleeding RADHA + Protein Elect, Serum Today K51.211 - Ulcerative (chronic) proctitis with rectal bleeding Pancreatic Elastase, Fecal Today K51.211 - Ulcerative (chronic) proctitis with rectal bleeding Miscellaneous Lab Procedure Today K51.211 - Ulcerative (chronic) proctitis with rectal bleeding Miscellaneous Lab Procedure 2 Today K51.211 - Ulcerative (chronic) proctitis with rectal bleeding I have examined the patient and the H&P has been reviewed. There are no clinical changes since date of exam.
--- NOTE | 2023-06-14 09:15 | COLBX_PTH ---
PATHOLOGY RESULTS PATIENT: MARYCARMEN RABAGO LOC: EN U#:[id number] AGE/SX: 38/M ROOM: RE06/14/[address]: Dr. Jaylen Gutierres DO : 1985 BED: DIS: 06/14/2023 SPEC #: [id number] RECD: 06/14/23 11:19 STATUS: TORO RAPHAELZachary #: [id number] TIBURCIO: 06/14/23 09:[address]: Jaylen Gutierres DEPT: SURGICAL PATHOLOGY RECD BY: Adilia Thakkar ENTERED: 06/14/23 11:20 SP TYPE: COLON BX OTHR DR: Roseanne Primary Care Phys Tissues: Ascending colon Transverse colon Descending colon Sigmoid colon biopsy Rectum, NOS Procedures: Surgery Specimen Level IV HEADER OPERATION: Colonoscopy with biopsy PRE-OP DIAGNOSIS: Ulcerative proctitis with rectal bleeding TISSUE SUBMITTED: A - Ascending colon biopsy, B - Transverse colon biopsy, C - Descending colon biopsy, D - Sigmoid colon biopsy, E - Rectal biopsy MICROSCOPIC DIAGNOSIS A. Ascending colon, biopsy: Fragments of colonic mucosa, no pathologic diagnosis. B. Transverse colon, biopsy: Fragments of colonic mucosa, no pathologic diagnosis. C. Descending colon, biopsy: Diffuse moderate chronic active colitis. See microscopic description and comment. D. Sigmoid colon, biopsy: Diffuse moderate chronic active colitis. See microscopic description and comment. E. Rectal biopsy: Diffuse moderate chronic active colitis. See microscopic description and comment. SJ:rosendo 06/15/2023 COMMENT C-E. The findings are consistent with inflammatory bowel disease (ulcerative colitis). Correlation with clinical, endoscopic findings and appropriate follow up are necessary. MICROSCOPIC DESCRIPTION Slides are reviewed. C-E. All three specimens show similar morphologic features. The specimen shows fragments of colonic mucosa with moderate acute and chronic inflammatory cell infiltrate in the lamina propria, cryptitis, crypt abscesses and glandular distortion. Granulomas are not seen. No evidence of dysplasia. GROSS DESCRIPTION A - Received in fixative is one container labeled with the patient's name and designated ascending colon biopsy. The specimen consists of multiple irregular fragments of light hermosillo soft tissue that in aggregate measure 1.5 x 0.5 x 0.1 cm. The specimen is totally submitted in one cassette. B - Received in fixative is one container labeled with the patient's name and designated transverse colon biopsy. The specimen consists of multiple irregular fragments of light hermosillo soft tissue that in aggregate measure 1.0 x 0.8 x 0.1 cm. The specimen is totally submitted in one cassette. C - Received in fixative is one container labeled with the patient's name and designated descending colon biopsy. The specimen consists of multiple irregular fragments of light hermosillo soft tissue that in aggregate measure 1.0 x 0.3 x 0.1 cm. The specimen is totally submitted in one cassette. D - Received in fixative is one container labeled with the patient's name and designated sigmoid colon biopsy. The specimen consists of multiple irregular fragments of light hermosillo soft tissue that in aggregate measure 1.4 x 0.5 x 0.1 cm. The specimen is totally submitted in one cassette. E - Received in fixative is one container labeled with the patient's name and designated rectal biopsy. The specimen consists of two irregular fragments of light hermosillo soft tissue that in aggregate measure 0.6 x 0.5 x 0.1 cm. The specimen is totally submitted in one cassette. / SJ:rg 06/14/2023 TC:3 CPT: 55704 x5
--- NOTE | 2023-06-14 10:07 | OP.CCLET_ITS ---
06/14/2023 No Primary Care Physician Re : Colonoscopy procedure for [place] Lovell Dear Care Physician This procedure was performed on June. My impressions and recommendations are as follows: Impressions : - Preparation of the colon was fair. - Severe (Wall Score 3) ulcerative colitis, worsened since the last examination. Biopsied. - Stool at the hepatic flexure, in the ascending colon and in the cecum. Recommendations : - Discharge patient to home. - Resume previous diet. - Continue present medications. - Await pathology results. - Repeat colonoscopy in 1 year for surveillance based on pathology results. My findings are described in the full procedure note, which is enclosed. If I can be of further assistance, please feel free to contact me at . Sincerely, Jaylen Friend, 06/14/2023 10:07:27 AM This report has been signed electronically.
--- NOTE | 2023-06-14 10:07 | OP.COLON_ITS ---
Patient Name: Montana Lovell Procedure Date: 06/14/2023 9:34 AM Date of : 1985 Age: 38 Procedure: Colonoscopy Indications: Left-sided chronic ulcerative colitis Providers: Jaylen Gutierres DO Referring MD: No Primary Care Physician Medicines: Monitored Anesthesia Care Patient Profile: This is a 38 year old male. Refer to note in patient chart for documentation of history and physical. Last Colonoscopy: 1 year ago. Complications: No immediate complications. Procedure: Pre-Anesthesia Assessment: - Prior to the procedure, a History and Physical was performed, and patient medications and allergies were reviewed. The risks and benefits of the procedure and the sedation options and risks were discussed with the patient. All questions were answered and informed consent was obtained. Patient identification and proposed procedure were verified by the physician in the pre-procedure area. Mental Status Examination: alert and oriented. Airway Examination: normal oropharyngeal airway and neck mobility. Respiratory Examination: clear to auscultation. CV Examination: normal. Prophylactic Antibiotics: The patient does not require prophylactic antibiotics. Prior Anticoagulants: The patient has taken no anticoagulant or antiplatelet agents. ASA Grade Assessment: II - A patient with mild systemic disease. After reviewing the risks and benefits, the patient was deemed in satisfactory condition to undergo the procedure. The anesthesia plan was to use monitored anesthesia care (MAC). Immediately prior to administration of medications, the patient was re-assessed for adequacy to receive sedatives. The heart rate, respiratory rate, oxygen saturations, blood pressure, adequacy of pulmonary ventilation, and response to care were monitored throughout the procedure. The physical status of the patient was re-assessed after the procedure. After I obtained informed consent, the scope was passed under direct vision. Throughout the procedure, the patient's blood pressure, pulse, and oxygen saturations were monitored continuously. The colonoscope was introduced through the anus and advanced to the cecum, identified by appendiceal orifice and ileocecal valve. The colonoscopy was performed without difficulty. The patient tolerated the procedure well. The quality of the bowel preparation was fair. The ileocecal valve, appendiceal orifice, and rectum were photographed. Scope In: 9:46:48 AM Scope Withdrawal Time 0 hours 7 minutes 37 seconds Scope Out: 9:56:57 AM Total Procedure Duration Time 0 hours 10 minutes 9 seconds Findings: The perianal and digital rectal examinations were normal. Inflammation was found in a continuous and circumferential pattern from the anus to the splenic flexure. This was graded as Wall Score 3 (severe, with spontaneous bleeding, ulcerations), and when compared to the previous examination, the findings are worsened. Biopsies were taken with a cold forceps for histology. Verification of patient identification for the specimen was done. Estimated blood loss was minimal. Stool was found at the hepatic flexure, in the ascending colon and in the cecum. Impression: - Preparation of the colon was fair. - Severe (Wall Score 3) ulcerative colitis, worsened since the last examination. Biopsied. - Stool at the hepatic flexure, in the ascending colon and in the cecum. Recommendation: - Discharge patient to home. - Resume previous diet. - Continue present medications. - Await pathology results. - Repeat colonoscopy in 1 year for surveillance based on pathology results. Procedure Code(s): --- Professional --- 17099, Colonoscopy, flexible; with biopsy, single or multiple CPT copyright 2021 [employer]. All rights reserved. The codes documented in this report are preliminary and upon gasoline power shovel operator review may be revised to meet current compliance requirements. Jaylen Gutierres DO 06/14/2023 10:07:27 AM This report has been signed electronically. Number of Addenda: 0 Note Initiated On: 06/14/2023 9:34 AM
== END 2023-06-14 10:53 | disposition home or self-care (01) ==
LOC: EN 08:28 → AC 08:30
PROVIDERS: Visit Provider Internal Medicine Gastroenterology
PROC: 0DJD8ZZ Inspection of Lower Intestinal Tract, Via Natural or Artificial Opening Endoscopic (ICD-10-PCS; CPT 45378; principal; 2023-06-14 09:10)
DX: K51.211 Ulcerative (chronic) proctitis with rectal bleeding (principal); Z87.19 Personal history of other diseases of the digestive system; K29.80 Duodenitis without bleeding
CPT/HCPCS: 45380; 88305; J7120; J2405

== ENCOUNTER 2023-10-21 20:29 | Emergency (ER) | payer OTHER, SELFPAY ==
[2023-10-21 20:30] VITALS: BP 127/82; PULSE 112; RESP 18; TEMP 36
[2023-10-21 20:31] VITALS: BP 127/82; PULSE 112; RESP 18; TEMP 36; BMI 25.5
--- NOTE | 2023-10-21 20:35 | EX.ED.DYSGE1 ---
HPI History of Present Illness Chief Complaint: Abd Pain [facility] Medical History (Updated 06/11/23 @ 14:[address] Tonny Michaels DO) Blood disorder Colitis Dietary restriction Duodenitis Former smoker History of GI bleed History of steroid therapy Home Medications budesonide 9 mg tablet,delayed and extended release 9 mg PO QAM 30 days #30 ea 06/05/23 [Rx Last Taken Unknown] ondansetron 4 mg disintegrating tablet 4 mg PO Q8H PRN PRN Nausea #10 tabs 06/11/23 [Rx Last Taken Unknown] prednisone 20 mg tablet 20 mg PO Q12H #60 tabs 06/14/23 [Rx Last Taken Unknown] prednisone 50 mg tablet 50 mg PO DAILY 5 days #5 tabs 10/21/23 [Rx Last Taken Unknown] Allergy/AdvReac Type Severity Reaction Status Date / Time clindamycin Allergy Hives Verified 10/21/23 20:30 Surgical History History of colonoscopy Social History Smoking Status: Former smoker EXAM Physical Exam Const Vital Signs: 10/21/23 20:31 10/21/23 20:30 Temperature 96.8 F L 96.8 F L Temperature Source Temporal Temporal Pulse Rate 112 H 112 H Respiratory Rate 18 18 Blood Pressure 127/82 H 127/82 H Blood Pressure Mean 97 97 MDM MDM MDM Narrative Medical decision making narrative: HISTORY OF PRESENT ILLNESS: 38 year old male presents with abdominal pain. Notes left-sided abdominal pain consistent with prior Crohn's flares. States he has not follow-up with GI doctor since June. Denies vomiting. Last bowel was yesterday. No history abdominal surgery REVIEW OF SYSTEMS: All other systems reviewed and are negative except as noted in the history of present illness. At least 10 review of systems reviewed and are negative except as noted in history of present illness. PHYSICAL EXAM: Nursing triage notes reviewed, Vital signs reviewed Constitutional: please see mdm HENT: MMM Eyes: Pupils equal round and reactive to light, Extraocular muscles intact Neck: No stridor, no JVD, full neck ROM Lungs: Clear to auscultation, No wheezing or rales. No increased work of breathing, no conversational dyspnea, no accessory muscle use, no nasal flaring. No respiratory distress noted Heart: Regular rate and rhythm, No murmurs, No rubs and No gallops, 2+ distal pulses (radial, femoral, posterior tibial) in all extremities Abdomen: Soft, TTP over left abdomen but no no rigidity, rebound or guarding, no obvious peritoneal signs, no palpable pulsatile abdominal masses, no auscultated abdominal bruit : No CVAT Extremities: No edema Neuro: No focal neurological deficits, cranial nerves II through XII intact, 5/5 strength in all extremities. Intact sensation to light touch in all extremities, 2+ reflexes bilateral patella tendons. Normal gait. No ataxia. Skin: No rash or lesions noted MEDICAL DECISION MAKING: Chief Complaint: abdominal pain External records reviewed: Abnormal descending colon and rectosigmoid with prominent wall thickening consistent with nonspecific colitis imaging reviewed: CT scan abdomen pelvis from 2022 shows. Prior colonoscopy from June 2023 shows ulcerative colitis Factors affecting care: Colitis, duodenitis Social determinants of health:none History obtained from others: none Consults: none MDM Narrative: Patient was initially tachycardic otherwise hemodynamically stable, afebrile and nontoxic-appearing. Abdominal exam was benign. Patient's history, physical exam is most consistent with UC flare. I considered the following differential diagnosis: AAA, small bowel obstruction, abdominal perforation, appendicitis, pancreatitis, hepatobiliary pathology (acute cholecystitis), mesenteric ischemia, abnormalities such as pyelonephritis, nephrolithiasis. UC flare I obtained a broad lab workup. Medication for CT at this time as patient a benign belly exam. Low suspicion for perforation or obstruction. ALL IMAGES (IF OBTAINED) HAVE BEEN PERSONALLY REVIEWED AND INTERPRETED BY MYSELF. CBC with no leukocytosis, noted mild anemia but no thrombocytopenia BMP with hypokalemia, no significant anion gap or metabolic acidosis LFTs show no evidence of hepatobiliary pathology. Lipase is wnl indicating no pancreatic inflammation. High-sensitivity troponin is negative, no evidence of myocardial ischemia EKG without signs of myocardial ischemia I see nothing that would suggest an acute abdomen at this time. Based on history physical exam, risk factors, my suspicion for bowel obstruction, incarcerated hernia, perforated viscus, acute cholecystitis, appendicitis is very low. There is no evidence of peritonitis sepsis or toxicity at this time. I feel the patient can be managed as an outpatient with follow-up with her/his primary physician and/or technical communicator in the next 24 to 48 hours or soon as possible. Instructions have been given for the patient to return to the ED for worsening pain, anorexia, high fevers, intractable vomiting or bleeding. The patient and/or family, caregivers express understanding. The patient and/or family, caregivers agrees with the plan. Total critical care time today provided was at least 0 minutes. This excludes separately billable procedures. Critical care time (if documented) is secondary to the patient having high probability of clinically significant/life threatening deterioration in the patient's condition which required my urgent intervention. Shared decision making: I will have a discussion with the patient and or visitors regarding risk/benefits of further testing or admission. They will be made aware of of the risk/benefits inherent in this decision they will be given the opportunity to voice understanding. Impression: 1. Vomiting 2. History of ulcer colitis 3. Hypokalemia 4. Anemia Disposition: [Discharge home with close GI follow-up Tonny Michaels DO This note was generated with [employer] dictation software. It may contain incorrect words, spelling, and punctuation that were not noted in review of the chart prior to signing. Lab Data Labs: Laboratory Results - last 24 hr 10/21/23 20:53 WBC 9.1 RBC 3.88 L Hgb 10.4 L Hct 30.8 L MCV 79.4 L MCH 26.8 L MCHC 33.8 RDW Std Deviation 36.9 RDW Coeff of June 12.9 Plt Count 388 MPV 8.8 Immature Gran % (Auto) 0.300 Neut % (Auto) 55.0 Lymph % (Auto) 24.8 [place] % (Auto) 13.1 H Eos % (Auto) 6.1 H Baso % (Auto) 0.7 Absolute Neuts (auto) 5.0 Absolute Lymphs (auto) 2.26 Nucleated RBC % 0 Sodium 137 Potassium 3.2 L Chloride 103 Carbon Dioxide 26.0 Anion Gap 8 BUN 6 L Creatinine 0.94 Estim Creat Clear Calc 97.67 Est GFR (MDRD) Af Amer 114 Est GFR (MDRD) Non-Af 94 BUN/Creatinine Ratio 6.4 L Glucose 102 Calcium 8.7 Total Bilirubin 0.60 Direct Bilirubin 0.17 AST 13 L ALT 27 Alkaline Phosphatase 58 Troponin I High Sens < 3 L Total Protein 6.6 Albumin 2.7 L Globulin 3.9 Lipase 14 Discharge Plan Triage Chief Complaint: Abd Pain ED Provider: Tonny Michaels Dx/Rx/DC Orders Instructions: ED Understanding Colitis Prescriptions: New prednisone 50 mg tablet 50 mg PO DAILY 5 Days Qty: 5 0RF No Action prednisone 20 mg tablet 20 mg PO Q12H Qty: 60 3RF ondansetron 4 mg tablet,disintegrating 4 mg PO Q8H PRN PRN (Reason: Nausea) Qty: 10 0RF budesonide 9 mg tablet,delayed and ext.release 9 mg PO QAM 30 Days Qty: 30 3RF Primary Care Provider: Care Physician,No Primary Referrals: Friend,Jaylen, DO [Med Staff - Active Staff] - Care Physician,No Primary [Primary Care Provider] - Activity Restrictions/Additional Instructions: Thank you for trusting us with your care today! Please take Tylenol (2 pills, 650 mg), ibuprofen (2 pills, 400 mg) every 6 hours as needed for pain and fever control. Please take prednisone as prescribed. Please return to the emergency department if your symptoms change or worsen. Specifically cannot tolerate medicine or food by mouth. Specific if you do not have bowel movements for greater than 7 days. If you develop severe bleeding from your GI tract including black stools or blood in your stool. Please follow with your primary care physician for further outpatient evaluation and management. Disposition Disposition: Home, Self Care
[2023-10-21] MEDS: 0.9% Normal Saline (1000mL) 1,000 ML 1000 ML IV (20:58)
[2023-10-21] MEDS: Ketorolac 15 MG/ML Vial IV (20:58)
[2023-10-21 21:04] LABS: Absolute Lymphocyte Count 2.26 X10^3/uL (0.83-4.51); Basophil# 0.06 X10^3/uL; Basophil% 0.7 % (0-1); Eosinophil# 0.56 X10^3/uL; Eosinophils% 6.1 % (0-5); Hematocrit 30.8 % (40-54); Hemoglobin 10.4 g/dL (13.0-16.5); Lymphocyte # 2.26 X10^3/ul (0.83-4.51); Lymphocyte % 24.8 % (19-41); Mean Corp Hgb Conc 33.8 g/dL (32-36); Mean Corpuscular Hgb 26.8 pg (27.0-32.0); Mean Corpuscular Volume 79.4 fL (80-94); Mean Platelet Vol. 8.8 fl (6.2-12.0); Monocyte# 1.19 X10^3/uL; Monocyte% 13.1 % (0-10); NRBC Flagged by Analyzer 0 % (0-5); Neutrophil # 5.01 X10^3/uL (2.7-7.7); Platelet Count 388 K/mm3 (150-450); RBC Distribution Width CV 12.9 % (11.6-14.6); RBC Distribution Width SD 36.9 fl (35.1-43.9); Red Blood Count 3.88 M/mm3 (4.6-6.2); White Blood Count 9.1 K/mm3 (4.4-11.0)
[2023-10-21 21:29] LABS: AST(SGOT) 13 U/L (15-37); Alanine Aminotransfer ALT/SGPT 27 U/L (16-61); Albumin, Serum 2.7 g/dL (3.2-5.0); Alkaline Phosphatase 58 U/L (45-117); Anion Gap 8 (5-15); BUN 6 mg/dL (7-18); BUN/Creat Ratio 6.4 RATIO (10-20); Bilirubin, Direct 0.17 mg/dL (0.00-0.30); Calcium,Total 8.7 mg/dL (8.5-10.1); Chloride 103 mmol/L (98-107); Creatinine, Serum 0.94 mg/dL (0.70-1.30); EST Glomerular Filtration Rate 94 mL/min (>60); Est Glom Filt Rate - Afr Amer 114 mL/min (>60); Estimated Creatinine Clearance 97.67 ml/min; Globulin 3.9 g/dL (2.2-4.2); Glucose 102 mg/dL (74-106); Lipase 14 U/L (13-75); Potassium 3.2 mmol/L (3.5-5.1); Protein, Total 6.6 g/dL (6.4-8.2); Sodium Level 137 mmol/L (136-145); Troponin-I HS < 3 pg/mL (3.0-78.0)
[2023-10-21] MEDS: Morphine 4 MG/ML Syringe IV (22:14)
[2023-10-21 22:24] VITALS: BP 129/77; PULSE 79; RESP 16; TEMP 37.1; O2SAT 96
[2023-10-21 22:30] VITALS: BP 126/75; PULSE 79; RESP 16; O2SAT 97
== END 2023-10-21 22:38 | disposition home or self-care (01) ==
PROVIDERS: Emergency Provider Emergency Medicine; Visit Provider Emergency Medicine
DX: R11.10 Vomiting, unspecified (principal); K51.90 Ulcerative colitis, unspecified, without complications; E87.6 Hypokalemia; D64.9 Anemia, unspecified; Z87.891 Personal history of nicotine dependence
CPT/HCPCS: 80048; 80076; 83690; 84484; 85025; 93005; 96361; 96374; 96375; 99283; J7030; A4216

== ENCOUNTER → 2023-10-26 | Outpatient (CLI) | payer OTHER, SELFPAY ==
[2023-10-26 16:30] LABS: Erythrocyte Sedimentation Rate 17 mm/hr (0-20)
[2023-10-26 16:34] LABS: Absolute Lymphocyte Count 0.92 X10^3/uL (0.83-4.51); Absolute Neutrophil Count 6.5 X10^3/uL (2.0-7.7); Basophil# 0.01 X10^3/uL; Basophil% 0.1 % (0-1); Eosinophil# 0.05 X10^3/uL; Eosinophils% 0.6 % (0-5); Hematocrit 30.4 % (40-54); Hemoglobin 9.7 g/dL (13.0-16.5); Lymphocyte # 0.92 X10^3/ul (0.83-4.51); Lymphocyte % 11.4 % (19-41); Mean Corp Hgb Conc 31.9 g/dL (32-36); Mean Corpuscular Hgb 26.4 pg (27.0-32.0); Mean Corpuscular Volume 82.6 fL (80-94); Mean Platelet Vol. 8.7 fl (6.2-12.0); Monocyte# 0.39 X10^3/uL; Monocyte% 4.9 % (0-10); NRBC Flagged by Analyzer 0.2 % (0-5); Neutrophil # 6.51 X10^3/uL (2.7-7.7); Platelet Count 513 K/mm3 (150-450); RBC Distribution Width CV 13.2 % (11.6-14.6); RBC Distribution Width SD 39.8 fl (35.1-43.9); Red Blood Count 3.68 M/mm3 (4.6-6.2)
[2023-10-29 15:31] LABS: Albumin 2.8 g/dL (2.9-4.4); Alpha-1-Globulins 0.5 g/dL (0.0-0.4); Gamma Globulin 0.6 g/dL (0.4-1.8); Immunoglobulin A 124 mg/dL (90-386); Immunoglobulin G 718 mg/dL (603-1613); Immunoglobulin M 110 mg/dL (20-172); PROEL- TOTAL PROTEIN 5.7 g/dL (6.0-8.5)
== END | disposition home or self-care (01) ==
LOC: LAB 15:32
PROVIDERS: Referring Provider Internal Medicine Gastroenterology; Visit Provider Internal Medicine Gastroenterology
DX: K51.211 Ulcerative (chronic) proctitis with rectal bleeding (principal)
CPT/HCPCS: 36415; 82784; 84165; 85025; 85652; 86140; 86334

== ENCOUNTER → 2023-11-02 | Outpatient (CLI) | payer OTHER, SELFPAY ==
[2023-11-07 22:06] LABS: Giardia Lamblia, Stool EIA Negative (Negative); Pancreatic Elastase, Fecal > 800 (>200)
== END | disposition home or self-care (01) ==
LOC: LAB 14:16
PROVIDERS: Referring Provider Internal Medicine Gastroenterology; Visit Provider Internal Medicine Gastroenterology
DX: K51.211 Ulcerative (chronic) proctitis with rectal bleeding (principal)
CPT/HCPCS: 82653; 83630; 83993; 87177; 87209; 87329; 87493

== ENCOUNTER 2023-12-21 13:14 | Outpatient (CLI) | payer OTHER, SELFPAY ==
[2023-12-21 13:33] VITALS: BP 131/75; PULSE 91; RESP 16; TEMP 36.4; O2SAT 100; BMI 25.3
[2023-12-21] MEDS: Ustekinumab 390 MG in 0.9% Normal Saline (250mL Bag) 172 ML 250 MG IV (14:03)
[2023-12-21 15:15] VITALS: BP 132/83; PULSE 74
== END 2023-12-21 23:59 | disposition home or self-care (01) ==
LOC: MEDOUTP 13:17
PROVIDERS: Referring Provider Internal Medicine Gastroenterology; Visit Provider Internal Medicine Gastroenterology
DX: K51.90 Ulcerative colitis, unspecified, without complications (principal)
CPT/HCPCS: 96365; J7050; J3358

== ENCOUNTER 2024-11-18 22:03 | Emergency (ER) | payer OTHER, SELFPAY ==
[2024-11-18 22:05] VITALS: BP 138/92; PULSE 51; RESP 14; TEMP 36.7; O2SAT 100
== END 2024-11-18 23:21 | disposition left against medical advice (07) ==
LOC: ED 23:32
DX: H16.133 Photokeratitis, bilateral (principal); Z53.21 Procedure and treatment not carried out due to patient leaving prior to being seen by health care provider

== ENCOUNTER → 2025-03-06 | Outpatient (CLI) | payer OTHER, SELFPAY ==
[2025-03-06 17:04] LABS: Hematocrit 39.3 % (40-54); Hemoglobin 13.5 g/dL (13.0-16.5); Immature Granulocytes Count 0.020 X10^3/uL (0.0-0.0); Mean Corp Hgb Conc 34.4 g/dL (32-36); Mean Corpuscular Volume 81.5 fL (80-94); Mean Platelet Vol. 9.9 fl (6.2-12.0); NRBC Flagged by Analyzer 0 % (0-5); Platelet Count 298 K/mm3 (150-450); RBC Distribution Width CV 14.3 % (11.6-14.6); RBC Distribution Width SD 42.1 fl (35.1-43.9); Red Blood Count 4.82 M/mm3 (4.6-6.2); White Blood Count 8.0 K/mm3 (4.4-11.0)
[2025-03-06 17:42] LABS: AST(SGOT) 23 U/L (<=37); Alanine Aminotransfer ALT/SGPT 19 U/L (<=46); Albumin, Serum 4.4 g/dL (3.5-5.0); Alkaline Phosphatase 65 U/L (40-129); Anion Gap 12 (5-15); BUN 13 mg/dL (4-19); BUN/Creat Ratio 13.9 RATIO (10-20); CRP < 3.00 mg/L (0.0-3.0); Calcium,Total 9.2 mg/dL (7.6-11.0); Carbon Dioxide 21.8 mmol/L (21.0-32.0); Chloride 106 mmol/L (98-108); Globulin 1.8 g/dL (2.2-4.2); Glucose 75 mg/dL (70-99); Potassium 3.8 mmol/L (3.3-5.1)
== END | disposition home or self-care (01) ==
LOC: LAB 16:14
PROVIDERS: Referring Provider Student in an Organized Health Care Education/Training Program; Visit Provider Student in an Organized Health Care Education/Training Program
DX: K51.211 Ulcerative (chronic) proctitis with rectal bleeding (principal)
CPT/HCPCS: 36415; 80053; 85025; 86140

== ENCOUNTER → 2025-03-07 | Outpatient (CLI) | payer OTHER, SELFPAY ==
--- OUTSIDE RECORDS SUMMARY | 2024-11-18 22:39 | XMS RPT_ITS ---
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 [employer] Number: [id number] joo Date:[id number] n Name:[facility] [address], [place] [address]PK: MARYCARMEN GRIJALVAUGLEDOB: [id number] [address] [place], [place] [address]Nvc: (HP) (WP) [facility]
[2025-03-10 14:08] LABS: Giardia Lamblia, Stool EIA Negative (Negative)
[2025-03-11 08:09] LABS: Calprotectin, Stool 48 ug/g (0-120)
== END | disposition home or self-care (01) ==
LOC: LABSPEC 11:23
PROVIDERS: Visit Provider Student in an Organized Health Care Education/Training Program
DX: K51.211 Ulcerative (chronic) proctitis with rectal bleeding (principal)
CPT/HCPCS: 83993; 87177; 87209; 87329; 87493; 87506